=== PATIENT | male | born 1945 | race Caucasian/White ===

== ENCOUNTER 2018-05-16 09:24 | Inpatient (IN) | payer MEDICARE ==
[2018-05-08 10:09] VITALS: BP 143/77
[~2018-05-16] VITALS: Ht 165.1 cm; Wt 72.6 kg
[~2018-05-16 09:24] MED LIST: AMLO10TA8 PO; APIX5TAB PO; ATOR20TA37 PO; BUPIVACAINE/PF-EPI 0.5% 1:200K ONE; CARV-39 PO; CLON0.2T PO; CLON1PAT8 TP; DEXL60CA2 PO; DOXA2TAB9 PO; FURO20TA3 PO; GLIP10TA24 PO; GLIP5TAB10 PO; LOSA100T14 PO; METF500T17 PO; NEBI5TAB3 PO; OMEG500C3 PO; PANT40TA5 PO; POTA10TA5 PO; POTA20TA6 PO; ROSU10TA PO; SUCR1TAB33 PO; VENL150T PO; VENL75TA PO
[2018-05-16] MEDS ORDERED: LACTATED RINGERS 1,000 ML IV SCH (10:53)
[2018-05-16] MEDS ORDERED: MIDAZOLAM 1 MG/ML, 2ML ONE (11:40)
[2018-05-16] MEDS ORDERED: FENTANYL PF 250 MCG/5ML ONE ×2 (11:40→13:33)
[2018-05-16] MEDS ORDERED: PROPOFOL 10 MG/ML, 20ML ONE (11:42)
[2018-05-16] MEDS ORDERED: NEOSTIGMINE 1 MG/ML, 10ML ONE (11:42)
[2018-05-16] MEDS ORDERED: ONDANSETRON 2MG/ML, 2ML ONE (11:42)
[2018-05-16] MEDS ORDERED: DEXAMETHASONE 4 MG/ML, 1ML ONE (11:42)
[2018-05-16] MEDS ORDERED: CEFAZOLIN 1,000 MG ONE (11:42)
[2018-05-16] MEDS ORDERED: PHENYLEPHRINE 10 MG/ML ONE (12:19)
[2018-05-16] MEDS ORDERED: GLYCOPYRROLATE 0.2MG/1ML, 5ML ONE (12:19)
[2018-05-16] MEDS ORDERED: PROMETHAZINE 25 MG SUPP PR PRN (12:30)
[2018-05-16] MEDS ORDERED: MORPHINE SULFATE 4 MG/ML, 1ML IVPush PRN (12:30)
[2018-05-16] MEDS ORDERED: MEPERIDINE/PF 25MG/0.5ML IVPush PRN (12:30)
[2018-05-16] MEDS ORDERED: OXYcodone 5 MG/5 ML ORAL.SOL UDC PO PRN (12:30)
[2018-05-16] MEDS ORDERED: PROMETHAZINE 25 MG/ML, 1ML IV PRN (12:30)
[2018-05-16] MEDS ORDERED: PROMETHAZINE 25 MG/ML, 1ML IM PRN ×2 (12:30)
[2018-05-16] MEDS ORDERED: ONDANSETRON ODT 8 MG PO PRN (12:30)
[2018-05-16] MEDS ORDERED: hydrALAzine 20 MG/ML, 1ML IV PRN (12:30)
[2018-05-16] MEDS ORDERED: ONDANSETRON 2MG/ML, 2ML IV PRN (12:30)
[2018-05-16] MEDS ORDERED: LABETALOL 5MG/ML, 20ML IV PRN (12:30)
[2018-05-16] MEDS ORDERED: PROMETHAZINE 12.5 MG SUPP PR PRN (12:30)
[2018-05-16] MEDS ORDERED: ROCURONIUM 10MG/ML,5ML ONE (13:07)
[2018-05-16] MEDS ORDERED: HYDROmorphone 2 MG/ML, 1ML ONE (16:42)
[2018-05-16] MEDS ORDERED: FENTANYL PF 100 MCG/2ML ONE (16:42)
[2018-05-16] MEDS: HYDROmorphone 1 MG/ML, 1ML IV PRN ×4 (16:48→17:30)
[2018-05-16] MEDS: FENTANYL PF 100 MCG/2ML IV PRN ×3 (16:57→17:30)
[2018-05-16] MEDS ORDERED: MORPHINE SULFATE 4 MG/ML, 1ML ONE (17:32)
[2018-05-16] MEDS: LACTATED RINGERS 1,000 ML IV SCH (18:47)
[2018-05-16] MEDS ORDERED: CEFAZOLIN PMX 2GM/50ML 50 ML IVPB SCH (19:30)
[2018-05-16] MEDS: FENTANYL PF 100 MCG/2ML IVPush PRN (21:50)
[2018-05-17] MEDS: FENTANYL PF 100 MCG/2ML IVPush PRN ×8 (00:24→20:58)
[2018-05-17] MEDS: LORazepam 2 MG/ML, 1ML IVPush PRN (01:03)
[2018-05-17] MEDS ORDERED: KETOROLAC 30 MG/1 ML IVPush PRN (02:30)
[2018-05-17] MEDS: CEFAZOLIN 2,000 MG in SODIUM CHLORIDE 0.9% 50 ML IVPB SCH ×3 (02:49→19:41)
[2018-05-17] MEDS: LACTATED RINGERS 1,000 ML IV SCH ×3 (03:09→11:18)
[2018-05-17 04:57] LABS: BASOPHILS # (AUTO) 0.02 x10^3/uL (0-0.1); BASOPHILS % (AUTO) 0 % (0-1); EOSINOPHILS % (AUTO) 0 % (1-7); LYMPHOCYTES # (AUTO) 0.56 x10^3/uL (1-3.4); LYMPHOCYTES % (AUTO) 4 % (22-44); MD NO; MEAN CORPUSCULAR HEMOGLOBIN 31.6 pg (27.5-34.5); MEAN CORPUSCULAR HGB CONC 34.1 g/dL (33.2-36.2); MEAN CORPUSCULAR VOLUME 92.8 fL (81-97); MONOCYTES # (AUTO) 0.91 x10^3/uL (0.2-0.8); MONOCYTES % (AUTO) 6 % (2-9); NEUTROPHILS # (AUTO) 12.96 x10^3/uL (1.8-6.8); NEUTROPHILS % (AUTO) 90 % (42-75); PLATELET COUNT 220 x10^3/uL (130-400); RED BLOOD COUNT 3.95 x10^6/uL (4.38-5.82); RED CELL DISTRIBUTION WIDTH 13.2 % (9.4-14.8)
[2018-05-17 05:06] VITALS: BP 145/71
[2018-05-17 05:07] LABS: ANION GAP 10 mmol/L (5-15); CALCIUM 8.2 mg/dL (8.5-10.1); CHLORIDE 106 mmol/L (98-107); CREATININE 1.19 mg/dL (0.7-1.3)
[2018-05-17 05:14] LABS: PREALBUMIN 29.7 mg/dL (20.0-40.0)
[2018-05-17] MEDS ORDERED: MAGNESIUM SULFATE 3 GM in SODIUM CHLORIDE 0.9% 100 ML IV ONE (08:30)
[2018-05-17] MEDS: PANTOPRAZOLE 40 MG IV IVPush SCH (09:11)
[2018-05-17] MEDS: ENOXAPARIN 40 MG/0.4 ML SQ SCH (09:11)
[2018-05-17] MEDS: ONDANSETRON 2MG/ML, 2ML IVPush PRN ×2 (11:17→17:32)
[2018-05-17] MEDS ORDERED: PANTOPRAZOLE 40 MG IV IVPush ONE (20:00)
[2018-05-17] MEDS ORDERED: METOCLOPRAMIDE 5 MG/ML, 2ML IVPush ONE (20:00)
[2018-05-17] MEDS ORDERED: METOCLOPRAMIDE 5 MG/ML, 2ML ONE (20:03)
[2018-05-17] MEDS ORDERED: FUROSEMIDE 20 MG/2 ML ONE (23:51)
[2018-05-18] MEDS ORDERED: FUROSEMIDE 20 MG/2 ML IV ONE
[2018-05-18] MEDS ORDERED: FUROSEMIDE 20 MG/2 ML IV PRN (01:00)
[2018-05-18] MEDS: FENTANYL PF 100 MCG/2ML IVPush PRN ×7 (01:05→18:42)
[2018-05-18] MEDS ORDERED: LACTATED RINGERS 1,000 ML IV SCH (02:00)
[2018-05-18] MEDS: CEFAZOLIN 2,000 MG in SODIUM CHLORIDE 0.9% 50 ML IV SCH ×3 (03:39→19:18)
[2018-05-18 04:03] VITALS: BP 130/70
[2018-05-18 06:27] LABS: BASOPHILS # (AUTO) 0.05 x10^3/uL (0-0.1); BASOPHILS % (AUTO) 0 % (0-1); EOSINOPHILS % (AUTO) 0 % (1-7); LYMPHOCYTES % (AUTO) 6 % (22-44); MD NO; MEAN CORPUSCULAR HEMOGLOBIN 32.2 pg (27.5-34.5); MEAN CORPUSCULAR HGB CONC 34.7 g/dL (33.2-36.2); MEAN CORPUSCULAR VOLUME 92.8 fL (81-97); MONOCYTES # (AUTO) 1.12 x10^3/uL (0.2-0.8); MONOCYTES % (AUTO) 10 % (2-9); NEUTROPHILS # (AUTO) 9.43 x10^3/uL (1.8-6.8); NEUTROPHILS % (AUTO) 84 % (42-75); PLATELET COUNT 189 x10^3/uL (130-400); RED BLOOD COUNT 3.01 x10^6/uL (4.38-5.82); RED CELL DISTRIBUTION WIDTH 13.7 % (9.4-14.8)
[2018-05-18 06:36] LABS: ANION GAP 9 mmol/L (5-15); CALCIUM 8.1 mg/dL (8.5-10.1); CHLORIDE 106 mmol/L (98-107)
[2018-05-18 06:38] LABS: CREATININE 1.39 mg/dL (0.7-1.3)
[2018-05-18] MEDS: DEXTROSE 5% IV PRN ×2 (09:12→17:36)
[2018-05-18] MEDS: PANTOPRAZOLE 40 MG IV IVPush SCH (09:12)
[2018-05-18] MEDS: ENOXAPARIN 40 MG/0.4 ML SQ SCH (09:12)
[2018-05-18] MEDS: METHOCARBAMOL IV PRN ×2 (09:12→17:36)
[2018-05-18] MEDS: D5%-0.45% NACL 1,000 ML IV SCH ×2 (14:12→23:44)
[2018-05-18] MEDS: hydrALAzine 20 MG/ML, 1ML IVPush PRN (23:50)
[2018-05-19] MEDS: FENTANYL PF 100 MCG/2ML IVPush PRN ×4 (00:28→12:42)
[2018-05-19] MEDS ORDERED: METOPROLOL 1 MG/ML, 5ML ONE (02:37)
[2018-05-19] MEDS: METOPROLOL 1 MG/ML, 5ML IVPush PRN ×3 (02:40→19:51)
[2018-05-19] MEDS: CEFAZOLIN 2,000 MG in SODIUM CHLORIDE 0.9% 50 ML IV SCH ×3 (03:43→19:51)
[2018-05-19 04:09] VITALS: BP 110/48
[2018-05-19 04:29] LABS: BASOPHILS # (AUTO) 0.01 x10^3/uL (0-0.1); BASOPHILS % (AUTO) 0 % (0-1); EOSINOPHILS # (AUTO) 0.01 x10^3/uL (0-0.4); EOSINOPHILS % (AUTO) 0 % (1-7); LYMPHOCYTES # (AUTO) 1.09 x10^3/uL (1-3.4); LYMPHOCYTES % (AUTO) 11 % (22-44); MD NO; MEAN CORPUSCULAR HEMOGLOBIN 31.6 pg (27.5-34.5); MEAN CORPUSCULAR HGB CONC 33.8 g/dL (33.2-36.2); MEAN CORPUSCULAR VOLUME 93.6 fL (81-97); MEAN PLATELET VOLUME 8.5 fL (7.4-10.4); MONOCYTES # (AUTO) 0.85 x10^3/uL (0.2-0.8); MONOCYTES % (AUTO) 8 % (2-9); NEUTROPHILS # (AUTO) 8.27 x10^3/uL (1.8-6.8); NEUTROPHILS % (AUTO) 81 % (42-75); PLATELET COUNT 192 x10^3/uL (130-400); RED BLOOD COUNT 2.89 x10^6/uL (4.38-5.82); RED CELL DISTRIBUTION WIDTH 13.7 % (9.4-14.8)
[2018-05-19 04:42] LABS: ANION GAP 6 mmol/L (5-15); CALCIUM 7.7 mg/dL (8.5-10.1); CHLORIDE 105 mmol/L (98-107); CREATININE 1.13 mg/dL (0.7-1.3)
[2018-05-19] MEDS: ENOXAPARIN 40 MG/0.4 ML SQ SCH (08:39)
[2018-05-19] MEDS: PANTOPRAZOLE 40 MG IV IVPush SCH (08:39)
[2018-05-19] MEDS: POTASSIUM CHLORIDE 10% 40 MEQ/30 ML UDC JT SCH ×2 (08:40→19:51)
[2018-05-19] MEDS: DEXTROSE 5% IV PRN (10:57)
[2018-05-19] MEDS: METHOCARBAMOL IV PRN (10:57)
[2018-05-20] MEDS: FENTANYL PF 100 MCG/2ML IVPush PRN (00:45)
[2018-05-20] MEDS: D5%-0.45% NACL 1,000 ML IV SCH (01:55)
[2018-05-20] MEDS: CEFAZOLIN PMX 2GM/50ML 50 ML IVPB SCH ×3 (03:25→20:14)
[2018-05-20 04:00] VITALS: BP 146/62
[2018-05-20] MEDS: METOPROLOL 1 MG/ML, 5ML IVPush PRN ×2 (06:43→13:21)
[2018-05-20] MEDS: PANTOPRAZOLE 40 MG IV IVPush SCH (08:05)
[2018-05-20] MEDS: ENOXAPARIN 40 MG/0.4 ML SQ SCH (08:05)
[2018-05-20] MEDS ORDERED: GUAIFENESIN ER 600 MG TABLET PO SCH (09:00)
[2018-05-20 09:12] LABS: ANION GAP 7 mmol/L (5-15); CALCIUM 7.6 mg/dL (8.5-10.1); CHLORIDE 108 mmol/L (98-107)
[2018-05-20] MEDS ORDERED: MAGNESIUM SULFATE 1 GM in SODIUM CHLORIDE 0.9% 50 ML IV ONE (09:30)
[2018-05-20] MEDS ORDERED: POTASSIUM CHLORIDE 10% 40 MEQ/30 ML UDC PO ONE (09:30)
[2018-05-20] MEDS: DEXTROSE 5% IV PRN (11:04)
[2018-05-20] MEDS: METHOCARBAMOL IV PRN (11:04)
[2018-05-20] MEDS: INSULIN LISPRO 100 UNITS/ML, PEN SQ-INSULIN SCH ×3 (11:19→20:30)
[2018-05-20] MEDS ORDERED: GUAIFENESIN 100 MG/5 ML, 10ML UDC PO PRN (13:00)
[2018-05-20 15:00] VITALS: BP 150/76
[2018-05-20] MEDS: CARVEDILOL 12.5 MG TABLET PO SCH (18:00)
[2018-05-20] MEDS ORDERED: HYDROcodone/APAP 5/325 TABLET ONE (18:47)
[2018-05-20] MEDS: HYDROcodone/APAP 5/325 TABLET PO PRN (19:00)
[2018-05-20 19:54] VITALS: BP 145/74
[2018-05-20] MEDS: AMLODIPINE 5 MG TABLET PO SCH (20:30)
[2018-05-20] MEDS: ATORVASTATIN 20 MG TABLET PO SCH (20:30)
[2018-05-20] MEDS: VENLAFAXINE 75 MG CAP ER PO SCH (20:30)
[2018-05-20] MEDS ORDERED: VENLAFAXINE 75 MG CAP ER ONE (20:33)
[2018-05-20] MEDS: DIPHENHYDRAMINE 50 MG/ML, 1ML IVPush PRN (22:42)
[2018-05-21] VITALS: BP 149/84
[2018-05-21] MEDS: DIPHENHYDRAMINE 50 MG/ML, 1ML IVPush PRN (00:49)
[2018-05-21] MEDS: HYDROcodone/APAP 5/325 TABLET PO PRN ×3 (00:50→20:09)
[2018-05-21] MEDS: CEFAZOLIN PMX 2GM/50ML 50 ML IVPB SCH ×2 (03:11→12:11)
[2018-05-21 04:00] VITALS: BP 152/76
[2018-05-21 05:59] LABS: ANION GAP 8 mmol/L (5-15); CALCIUM 7.9 mg/dL (8.5-10.1); CHLORIDE 107 mmol/L (98-107); MEAN CORPUSCULAR HGB CONC 35.1 g/dL (33.2-36.2); MEAN CORPUSCULAR VOLUME 94.2 fL (81-97); MEAN PLATELET VOLUME 8.5 fL (7.4-10.4); PLATELET COUNT 223 x10^3/uL (130-400); RED BLOOD COUNT 2.27 x10^6/uL (4.38-5.82); RED CELL DISTRIBUTION WIDTH 13.5 % (9.4-14.8)
[2018-05-21] MEDS: CARVEDILOL 12.5 MG TABLET PO SCH ×2 (06:10→18:49)
[2018-05-21 06:34] LABS: BASOPHILS # (AUTO) 0.04 x10^3/uL (0-0.1); BASOPHILS % (AUTO) 0 % (0-1); EOSINOPHILS # (AUTO) 0.19 x10^3/uL (0-0.4); EOSINOPHILS % (AUTO) 2 % (1-7); LYMPHOCYTES # (AUTO) 1.53 x10^3/uL (1-3.4); LYMPHOCYTES % (AUTO) 15 % (22-44); MD SCAN; MONOCYTES # (AUTO) 1.22 x10^3/uL (0.2-0.8); MONOCYTES % (AUTO) 12 % (2-9); NEUTROPHILS # (AUTO) 7.42 x10^3/uL (1.8-6.8); NEUTROPHILS % (AUTO) 71 % (42-75)
[2018-05-21 06:44] VITALS: BP 134/76
[2018-05-21] MEDS: INSULIN LISPRO 100 UNITS/ML, PEN SQ-INSULIN SCH ×4 (07:00→20:48)
[2018-05-21] MEDS: PANTOPRAZOLE 40 MG IV IVPush SCH (08:51)
[2018-05-21] MEDS: AMLODIPINE 5 MG TABLET PO SCH ×2 (08:51→20:10)
[2018-05-21] MEDS: POTASSIUM CHLORIDE 10 MEQ TABLET.ER PO SCH (08:51)
[2018-05-21] MEDS: VENLAFAXINE 75 MG CAP ER PO SCH (08:51)
[2018-05-21] MEDS: FUROSEMIDE 20 MG TABLET PO SCH (08:51)
[2018-05-21] MEDS: DOXAZOSIN 2MG TABLET PO SCH (08:52)
[2018-05-21] MEDS: ENOXAPARIN 40 MG/0.4 ML SQ SCH (08:52)
[2018-05-21] MEDS ORDERED: DEXILANT 60 MG HOMEMEDPO SCH (09:00)
[2018-05-21 12:50] VITALS: BP 125/72
[2018-05-21 17:25] VITALS: BP 122/66
[2018-05-21 19:50] VITALS: BP 122/66
[2018-05-21] MEDS: ATORVASTATIN 20 MG TABLET PO SCH (20:10)
[2018-05-22] VITALS (9 sets, daily range): BP systolic 96–141; BP diastolic 56–74
[2018-05-22 05:24] LABS: BASOPHILS # (AUTO) 0.03 x10^3/uL (0-0.1); BASOPHILS % (AUTO) 0 % (0-1); EOSINOPHILS # (AUTO) 0.37 x10^3/uL (0-0.4); EOSINOPHILS % (AUTO) 4 % (1-7); LYMPHOCYTES # (AUTO) 1.47 x10^3/uL (1-3.4); LYMPHOCYTES % (AUTO) 15 % (22-44); MD NO; MEAN CORPUSCULAR HEMOGLOBIN 32.2 pg (27.5-34.5); MEAN CORPUSCULAR HGB CONC 34.4 g/dL (33.2-36.2); MEAN CORPUSCULAR VOLUME 93.5 fL (81-97); MEAN PLATELET VOLUME 8.1 fL (7.4-10.4); MONOCYTES # (AUTO) 1.18 x10^3/uL (0.2-0.8); MONOCYTES % (AUTO) 12 % (2-9); NEUTROPHILS % (AUTO) 70 % (42-75); PLATELET COUNT 240 x10^3/uL (130-400); RED CELL DISTRIBUTION WIDTH 13.4 % (9.4-14.8)
[2018-05-22] MEDS: HYDROcodone/APAP 5/325 TABLET PO PRN ×2 (06:30→20:22)
[2018-05-22] MEDS: CARVEDILOL 12.5 MG TABLET PO SCH ×2 (06:30→18:51)
[2018-05-22] MEDS: INSULIN LISPRO 100 UNITS/ML, PEN SQ-INSULIN SCH ×4 (07:00→20:25)
[2018-05-22] MEDS: ENOXAPARIN 40 MG/0.4 ML SQ SCH (09:00)
[2018-05-22] MEDS: AMLODIPINE 5 MG TABLET PO SCH ×2 (12:13→20:22)
[2018-05-22] MEDS: metFORMIN 500 MG TABLET PO SCH ×2 (12:13→17:16)
[2018-05-22] MEDS: DOXAZOSIN 2MG TABLET PO SCH (12:13)
[2018-05-22] MEDS: FUROSEMIDE 20 MG TABLET PO SCH (12:14)
[2018-05-22] MEDS: PANTOPRAZOLE 40 MG IV IVPush SCH (12:14)
[2018-05-22] MEDS: VENLAFAXINE 75 MG CAP ER PO SCH (12:14)
[2018-05-22] MEDS: POTASSIUM CHLORIDE 10 MEQ TABLET.ER PO SCH (17:16)
[2018-05-22] MEDS: ATORVASTATIN 20 MG TABLET PO SCH (20:22)
[2018-05-23 03:32] VITALS: BP 144/69
[2018-05-23] MEDS: CARVEDILOL 12.5 MG TABLET PO SCH ×2 (05:36→17:15)
[2018-05-23] MEDS: HYDROcodone/APAP 5/325 TABLET PO PRN ×4 (05:36→18:39)
[2018-05-23 05:38] LABS: BASOPHILS # (AUTO) 0.02 x10^3/uL (0-0.1); BASOPHILS % (AUTO) 0 % (0-1); EOSINOPHILS # (AUTO) 0.28 x10^3/uL (0-0.4); EOSINOPHILS % (AUTO) 3 % (1-7); LYMPHOCYTES # (AUTO) 1.25 x10^3/uL (1-3.4); LYMPHOCYTES % (AUTO) 11 % (22-44); MD NO; MEAN CORPUSCULAR HEMOGLOBIN 32.8 pg (27.5-34.5); MEAN CORPUSCULAR HGB CONC 34.9 g/dL (33.2-36.2); MEAN CORPUSCULAR VOLUME 93.8 fL (81-97); MEAN PLATELET VOLUME 8.6 fL (7.4-10.4); MONOCYTES # (AUTO) 1.44 x10^3/uL (0.2-0.8); MONOCYTES % (AUTO) 13 % (2-9); NEUTROPHILS # (AUTO) 7.97 x10^3/uL (1.8-6.8); NEUTROPHILS % (AUTO) 73 % (42-75); PLATELET COUNT 272 x10^3/uL (130-400); RED CELL DISTRIBUTION WIDTH 13.9 % (9.4-14.8)
[2018-05-23 05:48] LABS: ANION GAP 7 mmol/L (5-15); CALCIUM 7.6 mg/dL (8.5-10.1); CHLORIDE 101 mmol/L (98-107)
[2018-05-23 05:51] LABS: CREATININE 0.88 mg/dL (0.7-1.3)
[2018-05-23 07:46] VITALS: BP 131/63
[2018-05-23] MEDS: VENLAFAXINE 75 MG CAP ER PO SCH (07:47)
[2018-05-23] MEDS: FUROSEMIDE 20 MG TABLET PO SCH (07:48)
[2018-05-23] MEDS: metFORMIN 500 MG TABLET PO SCH ×2 (07:48→17:15)
[2018-05-23] MEDS: POTASSIUM CHLORIDE 10 MEQ TABLET.ER PO SCH (07:48)
[2018-05-23] MEDS: DOXAZOSIN 2MG TABLET PO SCH (07:48)
[2018-05-23] MEDS: AMLODIPINE 5 MG TABLET PO SCH ×2 (07:49→21:00)
[2018-05-23] MEDS: PANTOPRAZOLE 40 MG IV IVPush SCH (07:49)
[2018-05-23] MEDS: INSULIN LISPRO 100 UNITS/ML, PEN SQ-INSULIN SCH ×4 (07:50→22:46)
[2018-05-23] MEDS ORDERED: METHOCARBAMOL 500 MG TABLET ONE (09:43)
[2018-05-23] MEDS: METHOCARBAMOL 500 MG TABLET PO PRN ×2 (09:54→18:39)
[2018-05-23] MEDS: ENOXAPARIN 40 MG/0.4 ML SQ SCH (09:54)
[2018-05-23 13:15] VITALS: BP 118/62
[2018-05-23] MEDS ORDERED: FUROSEMIDE 20 MG/2 ML IV ONE (18:30)
[2018-05-23 19:05] VITALS: BP 121/70
[2018-05-23] MEDS ORDERED: FUROSEMIDE 40 MG/4 ML IV ONE (21:30)
[2018-05-23 21:49] LABS: MEAN CORPUSCULAR HEMOGLOBIN 32.4 pg (27.5-34.5); MEAN CORPUSCULAR HGB CONC 34.2 g/dL (33.2-36.2); MEAN CORPUSCULAR VOLUME 94.5 fL (81-97); MEAN PLATELET VOLUME 8.2 fL (7.4-10.4); PLATELET COUNT 329 x10^3/uL (130-400); RED BLOOD COUNT 2.72 x10^6/uL (4.38-5.82); RED CELL DISTRIBUTION WIDTH 13.9 % (9.4-14.8)
[2018-05-23 21:55] LABS: ALBUMIN 2.2 g/dL (3.4-5.0); ANION GAP 10 mmol/L (5-15); CALCIUM 7.5 mg/dL (8.5-10.1); CHLORIDE 100 mmol/L (98-107)
[2018-05-23 22:00] LABS: ALANINE AMINOTRANSFERASE 13 U/L (12-78); ALKALINE PHOSPHATASE 59 U/L (45-117); BILIRUBIN,TOTAL 1.1 mg/dL (0.2-1.0); CREATININE 1.34 mg/dL (0.7-1.3); TOTAL PROTEIN 5.2 g/dL (6.4-8.2); TROPONIN I < 0.015 ng/mL (0.000-0.045)
[2018-05-23 22:26] LABS: MD YES
[2018-05-23 22:30] LABS: BAND#(MANUAL) 2.47 x10^3/uL; BANDS%(MANUAL) 17 % (0-7); BASOS#(MANUAL) 0.15 x10^3/uL (0-0.1); BASOS% (MANUAL) 1 % (0-1); LYMPH#(MANUAL) 0.73 x10^3/uL (1-3.4); LYMPHS% (MANUAL) 5 % (22-44); MONOS#(MANUAL) 1.45 x10^3/uL (0.3-2.7); MONOS% (MANUAL) 10 % (2-9); SEG#(MANUAL) 9.72 x10^3/uL (1.8-6.8); SEGS% (MANUAL) 67 % (42-75)
[2018-05-23 22:32] LABS: POLYCHROMASIA 1+
[2018-05-23 22:34] LABS: <PLATELET ESTIMATE> ADEQUATE; LARGE PLATELETS 1+; OVALOCYTES 1+
[2018-05-23] MEDS: ATORVASTATIN 20 MG TABLET PO SCH (22:54)
[2018-05-23] MEDS: FENTANYL PF 100 MCG/2ML IVPush PRN (22:56)
[2018-05-23] MEDS ORDERED: PHARMACOKINETIC CONSULTATION MC ONE (23:30)
[2018-05-23] MEDS ORDERED: VANCOMYCIN 1,700 MG in SODIUM CHLORIDE 0.9% 250 ML IV SCH (23:30)
[2018-05-23] MEDS ORDERED: VANCOMYCIN PER PHARMACY MC PRN (23:30)
[2018-05-23] MEDS ORDERED: PHARMACOKINETIC MONITORING MC PRN (23:30)
[2018-05-23] MEDS ORDERED: NOREPINEPHRINE 4 MG in SODIUM CHLORIDE 0.9% 246 ML IV PRN (23:30)
[2018-05-23] MEDS ORDERED: ALBUMIN HUMAN 25% 100 ML IV ONE (23:30)
[2018-05-23] MEDS ORDERED: PIPERACILLIN/TAZO/PMX 3.375GM 50 ML IV SCH (23:30)
[2018-05-24] MEDS: ERTAPENEM 1 GM in SODIUM CHLORIDE 0.9% 50 ML IV SCH (00:50)
[2018-05-24 04:33] LABS: BASOPHILS # (AUTO) 0.03 x10^3/uL (0-0.1); BASOPHILS % (AUTO) 0 % (0-1); EOSINOPHILS % (AUTO) 0 % (1-7); LYMPHOCYTES # (AUTO) 0.55 x10^3/uL (1-3.4); LYMPHOCYTES % (AUTO) 5 % (22-44); MD NO; MEAN CORPUSCULAR HEMOGLOBIN 31.9 pg (27.5-34.5); MEAN CORPUSCULAR HGB CONC 33.9 g/dL (33.2-36.2); MEAN CORPUSCULAR VOLUME 94.3 fL (81-97); MEAN PLATELET VOLUME 8.6 fL (7.4-10.4); MONOCYTES # (AUTO) 1.06 x10^3/uL (0.2-0.8); MONOCYTES % (AUTO) 9 % (2-9); NEUTROPHILS # (AUTO) 10.36 x10^3/uL (1.8-6.8); NEUTROPHILS % (AUTO) 86 % (42-75); PLATELET COUNT 368 x10^3/uL (130-400); RED BLOOD COUNT 2.64 x10^6/uL (4.38-5.82); RED CELL DISTRIBUTION WIDTH 13.8 % (9.4-14.8)
[2018-05-24 04:39] LABS: ALANINE AMINOTRANSFERASE 14 U/L (12-78); ALBUMIN 2.6 g/dL (3.4-5.0); ANION GAP 7 mmol/L (5-15); CALCIUM 7.9 mg/dL (8.5-10.1); CHLORIDE 98 mmol/L (98-107); CREATININE 1.25 mg/dL (0.7-1.3)
[2018-05-24 04:41] LABS: ALKALINE PHOSPHATASE 57 U/L (45-117); BILIRUBIN,TOTAL 1.1 mg/dL (0.2-1.0); TOTAL PROTEIN 5.4 g/dL (6.4-8.2)
[2018-05-24] MEDS: FENTANYL PF 100 MCG/2ML IVPush PRN (04:46)
[2018-05-24] MEDS: CARVEDILOL 12.5 MG TABLET PO SCH ×2 (06:37→17:47)
[2018-05-24] MEDS: AMLODIPINE 5 MG TABLET PO SCH ×2 (09:00→20:55)
[2018-05-24] MEDS: DOXAZOSIN 2MG TABLET PO SCH (09:00)
[2018-05-24] MEDS: ENOXAPARIN 40 MG/0.4 ML SQ SCH (09:36)
[2018-05-24] MEDS: PANTOPRAZOLE 40 MG IV IVPush SCH (09:36)
[2018-05-24] MEDS: FUROSEMIDE 40 MG/4 ML IV SCH ×3 (09:36→21:42)
[2018-05-24] MEDS: POTASSIUM CHLORIDE 10 MEQ TABLET.ER PO SCH (09:37)
[2018-05-24] MEDS: metFORMIN 500 MG TABLET PO SCH ×2 (09:41→17:47)
[2018-05-24] MEDS: VENLAFAXINE 75 MG CAP ER PO SCH (09:41)
[2018-05-24] MEDS: INSULIN LISPRO 100 UNITS/ML, PEN SQ-INSULIN SCH ×4 (09:52→23:02)
[2018-05-24] MEDS: LORazepam 2 MG/ML, 1ML IVPush PRN ×2 (11:44→21:49)
[2018-05-24] MEDS ORDERED: methylPREDNISolone SOD SUCC 125 MG/2 ML IVPush STA (13:03)
[2018-05-24] MEDS ORDERED: ALBUTEROL/IPRATROPIUM 2.5MG/0.5MG, 3 ML ONE (13:03)
[2018-05-24] MEDS: ALBUTEROL/IPRATROPIUM 2.5MG/0.5MG, 3 ML HHN SCH ×3 (13:30→22:41)
[2018-05-24] MEDS: ATORVASTATIN 20 MG TABLET PO SCH (20:55)
[2018-05-24] MEDS ORDERED: MORPHINE SULFATE 4 MG/ML, 1ML IVPush PRN (22:30)
[2018-05-25] MEDS: ERTAPENEM 1 GM in SODIUM CHLORIDE 0.9% 50 ML IV SCH ×2 (00:01→23:42)
[2018-05-25] MEDS: FENTANYL PF 100 MCG/2ML IVPush PRN ×2 (01:01→15:30)
[2018-05-25] MEDS: VANCOMYCIN 1,700 MG in SODIUM CHLORIDE 0.9% 250 ML IV SCH (01:25)
[2018-05-25] MEDS ORDERED: ROCURONIUM 10 MG/ML,10ML IVPush ONE (02:30)
[2018-05-25] MEDS ORDERED: MIDAZOLAM 1 MG/ML, 5ML IVPush PRN (02:30)
[2018-05-25] MEDS: ALBUTEROL/IPRATROPIUM 2.5MG/0.5MG, 3 ML HHN SCH (03:00)
[2018-05-25] MEDS ORDERED: PROPOFOL 100 ML IV PRN (03:30)
[2018-05-25] MEDS ORDERED: INSULIN LISPRO 100 UNITS/ML, PEN SQ-INSULIN SCH (04:00)
[2018-05-25] MEDS ORDERED: GLUCAGON 1 MG IM PRN (04:00)
[2018-05-25] MEDS ORDERED: ALBUTEROL/IPRATROPIUM 2.5MG/0.5MG, 3 ML INLINE SCH (04:00)
[2018-05-25] MEDS ORDERED: LACTULOSE 20 GM/30 ML UDC NG PRN (04:00)
[2018-05-25] MEDS ORDERED: PHARMACY MAY ADJ FOR RENAL FX MC SCH (04:00)
[2018-05-25] MEDS ORDERED: BISACODYL 10 MG SUPP PR PRN (04:00)
[2018-05-25] MEDS ORDERED: SODIUM CHLORIDE 0.9% 1,000ML IVBOLUS ONE (04:00)
[2018-05-25] MEDS ORDERED: LIDOCAINE-MPF 1%, 2ML ENDO PRN (04:00)
[2018-05-25] MEDS ORDERED: DEXTROSE 4 GM TAB.CHEW PO PRN (04:00)
[2018-05-25] MEDS ORDERED: SENNA/DOCUSATE TABLET NG PRN (04:00)
[2018-05-25] MEDS ORDERED: DEXTROSE 50%, 50ML SYRINGE IVPush PRN (04:00)
[2018-05-25] MEDS ORDERED: SENNOSIDES 8.8 MG/5 ML ORAL SOL NG PRN (04:00)
[2018-05-25] MEDS ORDERED: FAMOTIDINE 20 MG/2 ML IV SCH (04:00)
[2018-05-25] MEDS: INSULIN LISPRO 100 UNITS/ML, PEN SQ-INSULIN SCH ×4 (05:15→23:29)
[2018-05-25] MEDS: CARVEDILOL 12.5 MG TABLET PO SCH (06:00)
[2018-05-25 06:47] LABS: ANION GAP 10 mmol/L (5-15); CALCIUM 7.6 mg/dL (8.5-10.1); CHLORIDE 102 mmol/L (98-107); CREATININE 1.66 mg/dL (0.7-1.3)
[2018-05-25] MEDS ORDERED: BUPIVACAINE/PF-EPI 0.5% 1:200K ONE (06:50)
[2018-05-25 07:00] LABS: MEAN CORPUSCULAR HEMOGLOBIN 32.3 pg (27.5-34.5); MEAN CORPUSCULAR HGB CONC 33.9 g/dL (33.2-36.2); MEAN CORPUSCULAR VOLUME 95.4 fL (81-97); MEAN PLATELET VOLUME 8.1 fL (7.4-10.4); PLATELET COUNT 386 x10^3/uL (130-400); RED BLOOD COUNT 2.32 x10^6/uL (4.38-5.82)
[2018-05-25] MEDS ORDERED: FENTANYL PF 100 MCG/2ML ONE (07:18)
[2018-05-25] MEDS: ALBUTEROL/IPRATROPIUM 2.5MG/0.5MG, 3 ML INLINE SCH ×5 (07:25→23:00)
[2018-05-25] MEDS ORDERED: ROCURONIUM 10 MG/ML,10ML ONE ×2 (07:27→07:45)
[2018-05-25] MEDS ORDERED: PHENYLEPHRINE 10 MG/ML ONE ×5 (07:27→08:45)
[2018-05-25] MEDS ORDERED: MIDAZOLAM 1 MG/ML, 2ML ONE (07:31)
[2018-05-25] MEDS ORDERED: PROPOFOL 10 MG/ML, 100ML IV ONE (07:45)
[2018-05-25] MEDS ORDERED: MIDAZOLAM 1 MG/ML, 5ML ONE (07:45)
[2018-05-25] MEDS: POTASSIUM CHLORIDE 10 MEQ TABLET.ER PO SCH (08:00)
[2018-05-25] MEDS ORDERED: MIDAZOLAM 1 MG/ML, 2ML IVPush ONE (08:00)
[2018-05-25] MEDS: metFORMIN 500 MG TABLET PO SCH (08:00)
[2018-05-25 08:12] LABS: MD YES
[2018-05-25 08:15] LABS: BAND#(MANUAL) 6.15 x10^3/uL; BANDS%(MANUAL) 34 % (0-7); LYMPH#(MANUAL) 0.72 x10^3/uL (1-3.4); LYMPHS% (MANUAL) 4 % (22-44); MONOS#(MANUAL) 1.09 x10^3/uL (0.3-2.7); MONOS% (MANUAL) 6 % (2-9); SEG#(MANUAL) 10.14 x10^3/uL (1.8-6.8); SEGS% (MANUAL) 56 % (42-75)
[2018-05-25 08:20] LABS: ANISOCYTOSIS 1+; BASOPHILLIC STIPPLING 1+; POLYCHROMASIA 1+
[2018-05-25 08:21] LABS: SPHEROCYTES 1+
[2018-05-25 08:35] LABS: <PLATELET ESTIMATE> ADEQUATE; <PLT MORPHOLOGY> NORMAL PLT MORPH
[2018-05-25] MEDS: SODIUM CHLORIDE FLUSH 10ML SYR IVF SCH ×2 (09:00→21:10)
[2018-05-25] MEDS ORDERED: ROCURONIUM 10MG/ML,5ML ONE (09:51)
[2018-05-25 11:14] LABS: CHLORIDE 106 mmol/L (98-107)
[2018-05-25 11:20] LABS: ALANINE AMINOTRANSFERASE 14 U/L (12-78); ALBUMIN 1.7 g/dL (3.4-5.0); ALKALINE PHOSPHATASE 49 U/L (45-117); ANION GAP 6 mmol/L (5-15); BILIRUBIN,TOTAL 0.8 mg/dL (0.2-1.0); CREATININE 1.35 mg/dL (0.7-1.3); TOTAL PROTEIN 4.5 g/dL (6.4-8.2)
[2018-05-25 11:34] LABS: MEAN CORPUSCULAR HEMOGLOBIN 32.1 pg (27.5-34.5); MEAN CORPUSCULAR HGB CONC 33.8 g/dL (33.2-36.2); MEAN PLATELET VOLUME 8.3 fL (7.4-10.4); PLATELET COUNT 457 x10^3/uL (130-400); RED BLOOD COUNT 2.76 x10^6/uL (4.38-5.82)
[2018-05-25 11:39] LABS: HEMOGRAM NOTE RECHECKED
[2018-05-25] MEDS: SODIUM CHLORIDE 0.9% 1,000 ML IV SCH (12:00)
[2018-05-25 12:11] LABS: MD YES
[2018-05-25 12:13] LABS: ANISOCYTOSIS 1+; BAND#(MANUAL) 6.05 x10^3/uL; BANDS%(MANUAL) 36 % (0-7); LYMPH#(MANUAL) 0.34 x10^3/uL (1-3.4); LYMPHS% (MANUAL) 2 % (22-44); MONOS#(MANUAL) 0.84 x10^3/uL (0.3-2.7); MONOS% (MANUAL) 5 % (2-9); POLYCHROMASIA 1+; SEG#(MANUAL) 9.58 x10^3/uL (1.8-6.8); SEGS% (MANUAL) 57 % (42-75)
[2018-05-25 12:14] LABS: <PLATELET ESTIMATE> INCREASED; <PLT MORPHOLOGY> NORMAL PLT MORPH; SPHEROCYTES 1+
[2018-05-25] MEDS: ENOXAPARIN 40 MG/0.4 ML SQ SCH (12:56)
[2018-05-25] MEDS: PROPOFOL 100 ML IV PRN ×2 (13:29→21:11)
[2018-05-25] MEDS: PANTOPRAZOLE 40 MG IV IVPush SCH (15:18)
[2018-05-25] MEDS ORDERED: PHENYLEPHRINE 10 MG in SODIUM CHLORIDE 0.9% 249 ML IV PRN (16:30)
[2018-05-25 21:17] LABS: ANION GAP 9 mmol/L (5-15); CALCIUM 7.1 mg/dL (8.5-10.1); CHLORIDE 105 mmol/L (98-107); CREATININE 1.82 mg/dL (0.7-1.3)
[2018-05-25] MEDS: ACETAMINOPHEN 325 MG TABLET PO PRN (21:51)
[2018-05-26] MEDS: VANCOMYCIN 1,700 MG in SODIUM CHLORIDE 0.9% 250 ML IV SCH (01:34)
[2018-05-26] MEDS: PROPOFOL 100 ML IV PRN ×3 (02:52→19:24)
[2018-05-26] MEDS ORDERED: ALBUMIN HUMAN 25% 100 ML ONE (02:59)
[2018-05-26] MEDS: ALBUTEROL/IPRATROPIUM 2.5MG/0.5MG, 3 ML INLINE SCH ×6 (03:00→22:45)
[2018-05-26] MEDS ORDERED: ALBUMIN HUMAN 25% 100 ML IV ONE (03:00)
[2018-05-26] MEDS: INSULIN LISPRO 100 UNITS/ML, PEN SQ-INSULIN SCH ×4 (05:08→23:20)
[2018-05-26 05:23] LABS: MEAN CORPUSCULAR HEMOGLOBIN 32.2 pg (27.5-34.5); MEAN CORPUSCULAR HGB CONC 34.1 g/dL (33.2-36.2); MEAN CORPUSCULAR VOLUME 94.4 fL (81-97); MEAN PLATELET VOLUME 8.1 fL (7.4-10.4); PLATELET COUNT 314 x10^3/uL (130-400); RED BLOOD COUNT 1.96 x10^6/uL (4.38-5.82)
[2018-05-26 06:07] LABS: MD YES
[2018-05-26 06:08] LABS: BAND#(MANUAL) 0.61 x10^3/uL; BANDS%(MANUAL) 5 % (0-7); LYMPH#(MANUAL) 0.61 x10^3/uL (1-3.4); LYMPHS% (MANUAL) 5 % (22-44); MONOS#(MANUAL) 0.49 x10^3/uL (0.3-2.7); MONOS% (MANUAL) 4 % (2-9); SEG#(MANUAL) 10.49 x10^3/uL (1.8-6.8); SEGS% (MANUAL) 86 % (42-75)
[2018-05-26 06:09] LABS: ANISOCYTOSIS 1+; POLYCHROMASIA 1+
[2018-05-26 06:10] LABS: <PLATELET ESTIMATE> ADEQUATE
[2018-05-26 06:11] LABS: <PLT MORPHOLOGY> NORMAL PLT MORPH
[2018-05-26 06:28] VITALS: BP 119/55
[2018-05-26 06:34] LABS: ALANINE AMINOTRANSFERASE 20 U/L (12-78); ALBUMIN 1.9 g/dL (3.4-5.0); ANION GAP 10 mmol/L (5-15); CHLORIDE 103 mmol/L (98-107); CREATININE 2.05 mg/dL (0.7-1.3)
[2018-05-26 06:38] LABS: ALKALINE PHOSPHATASE 57 U/L (45-117); BILIRUBIN,TOTAL 0.6 mg/dL (0.2-1.0); TOTAL PROTEIN 4.8 g/dL (6.4-8.2); VANCOMYCIN,RANDOM 41.7 mcg/mL
[2018-05-26 06:40] VITALS: BP 120/56
[2018-05-26] MEDS: POTASSIUM CHLORIDE 10 MEQ TABLET.ER PO SCH (07:40)
[2018-05-26 08:30] VITALS: BP 138/61
[2018-05-26] MEDS: PANTOPRAZOLE 40 MG IV IVPush SCH (09:05)
[2018-05-26] MEDS: METHOCARBAMOL 500 MG TABLET PO PRN (09:05)
[2018-05-26] MEDS: SODIUM CHLORIDE FLUSH 10ML SYR IVF SCH ×2 (09:05→21:25)
[2018-05-26] MEDS: SODIUM CHLORIDE 0.9% 1,000 ML IV SCH (09:05)
[2018-05-26] MEDS: ENOXAPARIN 40 MG/0.4 ML SQ SCH (09:05)
[2018-05-26] MEDS: CARVEDILOL 12.5 MG TABLET PO SCH ×2 (09:06→18:32)
[2018-05-26 09:55] LABS: ANION GAP 10 mmol/L (5-15); CALCIUM 6.7 mg/dL (8.5-10.1); CHLORIDE 106 mmol/L (98-107); CREATININE 1.83 mg/dL (0.7-1.3)
[2018-05-26] MEDS: FLUCONAZOLE 200 MG/100 ML 100 ML IV SCH (14:55)
[2018-05-26] MEDS: LINEZOLID PMX 600MG/300ML 300 ML IV SCH (16:40)
[2018-05-26 23:08] LABS: ANION GAP 10 mmol/L (5-15); CHLORIDE 105 mmol/L (98-107); CREATININE 1.64 mg/dL (0.7-1.3)
[2018-05-26] MEDS: ERTAPENEM 1 GM in SODIUM CHLORIDE 0.9% 50 ML IV SCH (23:19)
[2018-05-27] MEDS: PROPOFOL 100 ML IV PRN ×4 (00:15→19:52)
[2018-05-27] MEDS: METHOCARBAMOL 500 MG TABLET PO PRN (01:55)
[2018-05-27] MEDS: FENTANYL PF 100 MCG/2ML IVPush PRN (01:55)
[2018-05-27] MEDS: LINEZOLID PMX 600MG/300ML 300 ML IV SCH ×2 (02:46→16:48)
[2018-05-27] MEDS: ALBUTEROL/IPRATROPIUM 2.5MG/0.5MG, 3 ML INLINE SCH ×6 (03:05→22:44)
[2018-05-27 05:14] LABS: MEAN CORPUSCULAR HEMOGLOBIN 31.8 pg (27.5-34.5); MEAN CORPUSCULAR HGB CONC 34.3 g/dL (33.2-36.2); MEAN CORPUSCULAR VOLUME 92.7 fL (81-97); MEAN PLATELET VOLUME 8.2 fL (7.4-10.4); PLATELET COUNT 377 x10^3/uL (130-400); RED BLOOD COUNT 2.57 x10^6/uL (4.38-5.82); RED CELL DISTRIBUTION WIDTH 15.3 % (9.4-14.8)
[2018-05-27 05:31] LABS: ANION GAP 9 mmol/L (5-15); CALCIUM 6.9 mg/dL (8.5-10.1); CHLORIDE 105 mmol/L (98-107)
[2018-05-27 05:33] LABS: CREATININE 1.47 mg/dL (0.7-1.3); VANCOMYCIN,RANDOM 19.1 mcg/mL
[2018-05-27 05:47] LABS: MD YES
[2018-05-27 05:48] LABS: ANISOCYTOSIS 1+; BAND#(MANUAL) 0.32 x10^3/uL; BANDS%(MANUAL) 2 % (0-7); LYMPHS% (MANUAL) 5 % (22-44); MONOS% (MANUAL) 5 % (2-9); NRBC % (MANUAL) 1 % (0-1); SEG#(MANUAL) 14.08 x10^3/uL (1.8-6.8); SEGS% (MANUAL) 88 % (42-75)
[2018-05-27 05:49] LABS: <PLATELET ESTIMATE> ADEQUATE; <PLT MORPHOLOGY> NORMAL PLT MORPH; POLYCHROMASIA 1+
[2018-05-27] MEDS: CARVEDILOL 12.5 MG TABLET PO SCH (06:06)
[2018-05-27] MEDS: INSULIN LISPRO 100 UNITS/ML, PEN SQ-INSULIN SCH ×4 (06:07→23:45)
[2018-05-27] MEDS: PANTOPRAZOLE 40 MG IV IVPush SCH (09:34)
[2018-05-27] MEDS: ENOXAPARIN 40 MG/0.4 ML SQ SCH (09:34)
[2018-05-27] MEDS: SODIUM CHLORIDE FLUSH 10ML SYR IVF SCH ×2 (09:34→19:52)
[2018-05-27] MEDS: SODIUM CHLORIDE 0.9% 1,000 ML IV SCH (11:52)
[2018-05-27] MEDS: FLUCONAZOLE 200 MG/100 ML 100 ML IV SCH (15:45)
[2018-05-27] MEDS ORDERED: ALBUMIN HUMAN 25% 100 ML IV ONE (16:30)
[2018-05-27] MEDS: CARVEDILOL 25 MG TABLET PO SCH (16:54)
[2018-05-27] MEDS: ERTAPENEM 1 GM in SODIUM CHLORIDE 0.9% 50 ML IV SCH (23:49)
[2018-05-28] MEDS: ALBUTEROL/IPRATROPIUM 2.5MG/0.5MG, 3 ML INLINE SCH ×6 (02:48→22:32)
[2018-05-28] MEDS: LINEZOLID PMX 600MG/300ML 300 ML IV SCH ×2 (03:19→14:37)
[2018-05-28] MEDS: PROPOFOL 100 ML IV PRN (03:27)
[2018-05-28] MEDS: INSULIN LISPRO 100 UNITS/ML, PEN SQ-INSULIN SCH ×4 (04:14→22:13)
[2018-05-28 04:24] LABS: MEAN CORPUSCULAR HEMOGLOBIN 30.9 pg (27.5-34.5); MEAN CORPUSCULAR HGB CONC 33.1 g/dL (33.2-36.2); MEAN CORPUSCULAR VOLUME 93.4 fL (81-97); MEAN PLATELET VOLUME 7.8 fL (7.4-10.4); PLATELET COUNT 407 x10^3/uL (130-400); RED BLOOD COUNT 2.49 x10^6/uL (4.38-5.82); RED CELL DISTRIBUTION WIDTH 15.6 % (9.4-14.8)
[2018-05-28 04:37] LABS: ANION GAP 9 mmol/L (5-15); CALCIUM 7.4 mg/dL (8.5-10.1); CHLORIDE 107 mmol/L (98-107); CREATININE 1.36 mg/dL (0.7-1.3); TRIGLYCERIDES 456 mg/dL (50-200)
[2018-05-28 04:55] LABS: FIO2 50 %
[2018-05-28 05:15] LABS: MD YES
[2018-05-28 05:18] LABS: BAND#(MANUAL) 0.67 x10^3/uL; BANDS%(MANUAL) 4 % (0-7); LYMPH#(MANUAL) 1.18 x10^3/uL (1-3.4); LYMPHS% (MANUAL) 7 % (22-44); MONOS#(MANUAL) 1.51 x10^3/uL (0.3-2.7); MONOS% (MANUAL) 9 % (2-9); SEG#(MANUAL) 13.44 x10^3/uL (1.8-6.8); SEGS% (MANUAL) 80 % (42-75)
[2018-05-28 05:19] LABS: ANISOCYTOSIS 1+; POLYCHROMASIA 1+
[2018-05-28 05:21] LABS: <PLATELET ESTIMATE> ADEQUATE; <PLT MORPHOLOGY> NORMAL PLT MORPH
[2018-05-28] MEDS: CARVEDILOL 25 MG TABLET PO SCH ×2 (05:38→17:51)
[2018-05-28] MEDS: ENOXAPARIN 40 MG/0.4 ML SQ SCH (08:31)
[2018-05-28] MEDS: PANTOPRAZOLE 40 MG IV IVPush SCH (08:31)
[2018-05-28] MEDS: SODIUM CHLORIDE FLUSH 10ML SYR IVF SCH ×2 (08:31→22:12)
[2018-05-28] MEDS: SODIUM CHLORIDE 0.9% 1,000 ML IV SCH (08:32)
[2018-05-28] MEDS: METHOCARBAMOL 500 MG TABLET PO PRN ×2 (09:42→22:13)
[2018-05-28] MEDS: FLUCONAZOLE 200 MG/100 ML 100 ML IV SCH (12:33)
[2018-05-28] MEDS: FENTANYL PF 100 MCG/2ML IVPush PRN (15:20)
[2018-05-28] MEDS ORDERED: INSULIN GLARGINE 100 UNITS/ML, PEN SQ-INSULIN SCH (22:00)
[2018-05-29] MEDS: DIPHENHYDRAMINE 50 MG/ML, 1ML IVPush PRN (01:28)
[2018-05-29] MEDS: ERTAPENEM 1 GM in SODIUM CHLORIDE 0.9% 50 ML IV SCH ×2 (01:50→23:49)
[2018-05-29] MEDS: hydrALAzine 20 MG/ML, 1ML IVPush PRN (02:00)
[2018-05-29] MEDS: ALBUTEROL/IPRATROPIUM 2.5MG/0.5MG, 3 ML INLINE SCH ×3 (02:18→11:00)
[2018-05-29] MEDS: LINEZOLID PMX 600MG/300ML 300 ML IV SCH ×2 (02:57→15:15)
[2018-05-29] MEDS: SODIUM CHLORIDE 0.9% 1,000 ML IV SCH ×2 (03:01→23:49)
[2018-05-29] MEDS: FENTANYL PF 100 MCG/2ML IVPush PRN (03:02)
[2018-05-29] MEDS: CARVEDILOL 25 MG TABLET PO SCH ×2 (04:09→17:26)
[2018-05-29] MEDS: INSULIN LISPRO 100 UNITS/ML, PEN SQ-INSULIN SCH ×4 (04:09→21:55)
[2018-05-29 04:25] LABS: MEAN CORPUSCULAR HEMOGLOBIN 30.7 pg (27.5-34.5); MEAN CORPUSCULAR HGB CONC 33.1 g/dL (33.2-36.2); MEAN CORPUSCULAR VOLUME 92.8 fL (81-97); MEAN PLATELET VOLUME 7.8 fL (7.4-10.4); PLATELET COUNT 460 x10^3/uL (130-400); RED BLOOD COUNT 2.55 x10^6/uL (4.38-5.82)
[2018-05-29 04:46] LABS: ANION GAP 6 mmol/L (5-15); CALCIUM 7.2 mg/dL (8.5-10.1); CHLORIDE 109 mmol/L (98-107); CREATININE 1.13 mg/dL (0.7-1.3)
[2018-05-29 05:48] LABS: MD YES
[2018-05-29 05:50] LABS: BAND#(MANUAL) 0.39 x10^3/uL; BANDS%(MANUAL) 2 % (0-7); EOS% (MANUAL) 1 % (1-7); LYMPH#(MANUAL) 1.57 x10^3/uL (1-3.4); LYMPHS% (MANUAL) 8 % (22-44); METAMYELOCYTES% (MANUAL) 1 % (0-1); MONOS#(MANUAL) 0.78 x10^3/uL (0.3-2.7); MONOS% (MANUAL) 4 % (2-9); MYELOCYTES# (MANUAL) 0.39 x10^3/uL (0-0); MYELOCYTES% (MANUAL) 2 % (0-0); SEG#(MANUAL) 16.07 x10^3/uL (1.8-6.8); SEGS% (MANUAL) 82 % (42-75)
[2018-05-29 05:51] LABS: ANISOCYTOSIS 1+
[2018-05-29 05:52] LABS: <PLATELET ESTIMATE> INCREASED; <PLT MORPHOLOGY> NORMAL PLT MORPH; POLYCHROMASIA 1+
[2018-05-29] MEDS: SODIUM CHLORIDE FLUSH 10ML SYR IVF SCH ×2 (08:49→21:54)
[2018-05-29] MEDS: ENOXAPARIN 40 MG/0.4 ML SQ SCH (08:49)
[2018-05-29] MEDS: PANTOPRAZOLE 40 MG IV IVPush SCH (08:55)
[2018-05-29] MEDS: FLUCONAZOLE 200 MG/100 ML 100 ML IV SCH (12:08)
[2018-05-29] MEDS ORDERED: ALBUTEROL/IPRATROPIUM 2.5MG/0.5MG, 3 ML NPPB PRN (13:00)
[2018-05-29] MEDS: INSULIN GLARGINE 100 UNITS/ML, PEN SQ-INSULIN SCH (21:55)
[2018-05-30] MEDS: LINEZOLID PMX 600MG/300ML 300 ML IV SCH ×2 (02:11→14:30)
[2018-05-30] MEDS: INSULIN LISPRO 100 UNITS/ML, PEN SQ-INSULIN SCH ×4 (04:09→23:26)
[2018-05-30 04:25] LABS: MEAN CORPUSCULAR HEMOGLOBIN 31.1 pg (27.5-34.5); MEAN CORPUSCULAR HGB CONC 33.4 g/dL (33.2-36.2); MEAN CORPUSCULAR VOLUME 93.2 fL (81-97); MEAN PLATELET VOLUME 7.8 fL (7.4-10.4); PLATELET COUNT 504 x10^3/uL (130-400); RED BLOOD COUNT 2.66 x10^6/uL (4.38-5.82); RED CELL DISTRIBUTION WIDTH 15.1 % (9.4-14.8)
[2018-05-30 04:36] LABS: ANION GAP 5 mmol/L (5-15); CALCIUM 7.1 mg/dL (8.5-10.1); CHLORIDE 109 mmol/L (98-107)
[2018-05-30 04:37] LABS: CREATININE 0.98 mg/dL (0.7-1.3)
[2018-05-30] MEDS: CARVEDILOL 25 MG TABLET PO SCH ×2 (05:14→17:46)
[2018-05-30 05:43] LABS: MD YES
[2018-05-30 05:45] LABS: BAND#(MANUAL) 0.62 x10^3/uL; BANDS%(MANUAL) 3 % (0-7); LYMPH#(MANUAL) 1.03 x10^3/uL (1-3.4); LYMPHS% (MANUAL) 5 % (22-44); METAMYELOCYTES# (MANUAL) 0.21 x10^3/uL (0-0); METAMYELOCYTES% (MANUAL) 1 % (0-1); MONOS#(MANUAL) 0.82 x10^3/uL (0.3-2.7); MONOS% (MANUAL) 4 % (2-9); MYELOCYTES# (MANUAL) 0.41 x10^3/uL (0-0); MYELOCYTES% (MANUAL) 2 % (0-0); SEG#(MANUAL) 17.43 x10^3/uL (1.8-6.8); SEGS% (MANUAL) 85 % (42-75)
[2018-05-30 05:46] LABS: ANISOCYTOSIS 1+; HYPOCHROMIA 1+
[2018-05-30 05:47] LABS: <PLATELET ESTIMATE> INCREASED; <PLT MORPHOLOGY> NORMAL PLT MORPH; POLYCHROMASIA 1+
[2018-05-30] MEDS: PANTOPRAZOLE 40 MG IV IVPush SCH (08:50)
[2018-05-30] MEDS: SODIUM CHLORIDE FLUSH 10ML SYR IVF SCH ×2 (08:51→20:18)
[2018-05-30] MEDS: ENOXAPARIN 40 MG/0.4 ML SQ SCH (08:51)
[2018-05-30] MEDS: ALBUMIN HUMAN 25% 100 ML IV SCH ×2 (08:51→17:47)
[2018-05-30] MEDS: FUROSEMIDE 20 MG/2 ML IV SCH ×2 (10:00→20:13)
[2018-05-30] MEDS: ALBUTEROL/IPRATROPIUM 2.5MG/0.5MG, 3 ML NPPB SCH ×4 (10:30→23:00)
[2018-05-30] MEDS ORDERED: LIDOCAINE-MPF 2%, 2ML ONE (11:30)
[2018-05-30] MEDS: FLUCONAZOLE 200 MG/100 ML 100 ML IV SCH (14:13)
[2018-05-30] MEDS ORDERED: FUROSEMIDE 20 MG/2 ML IV ONE (19:00)
[2018-05-30] MEDS: INSULIN GLARGINE 100 UNITS/ML, PEN SQ-INSULIN SCH (20:19)
[2018-05-30] MEDS: ERTAPENEM 1 GM in SODIUM CHLORIDE 0.9% 50 ML IV SCH (23:22)
[2018-05-31] MEDS: ALBUMIN HUMAN 25% 100 ML IV SCH ×4 (00:30→23:40)
[2018-05-31] MEDS: ACETAMINOPHEN 325 MG TABLET PO PRN ×2 (02:00→13:26)
[2018-05-31] MEDS: ALBUTEROL/IPRATROPIUM 2.5MG/0.5MG, 3 ML NPPB SCH ×5 (02:42→23:00)
[2018-05-31] MEDS: LINEZOLID PMX 600MG/300ML 300 ML IV SCH ×2 (03:12→15:15)
[2018-05-31] MEDS: SODIUM CHLORIDE 0.9% 1,000 ML IV SCH (04:00)
[2018-05-31] MEDS: INSULIN LISPRO 100 UNITS/ML, PEN SQ-INSULIN SCH ×4 (05:00→23:43)
[2018-05-31 05:21] LABS: ANION GAP 8 mmol/L (5-15); CALCIUM 7.4 mg/dL (8.5-10.1); CHLORIDE 110 mmol/L (98-107); CREATININE 0.93 mg/dL (0.7-1.3)
[2018-05-31 05:26] LABS: BASOPHILS % (AUTO) 0 % (0-1); EOSINOPHILS # (AUTO) 0.12 x10^3/uL (0-0.4); EOSINOPHILS % (AUTO) 1 % (1-7); LYMPHOCYTES # (AUTO) 0.97 x10^3/uL (1-3.4); LYMPHOCYTES % (AUTO) 7 % (22-44); MD NO; MEAN CORPUSCULAR HEMOGLOBIN 31.5 pg (27.5-34.5); MEAN CORPUSCULAR HGB CONC 33.8 g/dL (33.2-36.2); MEAN CORPUSCULAR VOLUME 93.1 fL (81-97); MEAN PLATELET VOLUME 7.9 fL (7.4-10.4); MONOCYTES # (AUTO) 1.34 x10^3/uL (0.2-0.8); MONOCYTES % (AUTO) 9 % (2-9); NEUTROPHILS # (AUTO) 12.55 x10^3/uL (1.8-6.8); NEUTROPHILS % (AUTO) 84 % (42-75); PLATELET COUNT 469 x10^3/uL (130-400); RED BLOOD COUNT 2.35 x10^6/uL (4.38-5.82); RED CELL DISTRIBUTION WIDTH 14.7 % (9.4-14.8)
[2018-05-31] MEDS: CARVEDILOL 25 MG TABLET PO SCH ×2 (05:32→17:35)
[2018-05-31] MEDS: PANTOPRAZOLE 40 MG IV IVPush SCH (08:42)
[2018-05-31] MEDS: ENOXAPARIN 40 MG/0.4 ML SQ SCH (08:42)
[2018-05-31] MEDS: SODIUM CHLORIDE FLUSH 10ML SYR IVF SCH ×2 (08:43→21:24)
[2018-05-31] MEDS: POTASSIUM CHLORIDE 10% 40 MEQ/30 ML UDC GT SCH ×2 (10:18→21:23)
[2018-05-31] MEDS: FUROSEMIDE 20 MG/2 ML IV SCH ×2 (10:20→21:26)
[2018-05-31] MEDS: FLUCONAZOLE 200 MG/100 ML 100 ML IV SCH (12:41)
[2018-05-31] MEDS: hydrALAzine 20 MG/ML, 1ML IVPush PRN ×2 (13:26→17:46)
[2018-05-31] MEDS: INSULIN GLARGINE 100 UNITS/ML, PEN SQ-INSULIN SCH (21:25)
[2018-05-31] MEDS: ERTAPENEM 1 GM in SODIUM CHLORIDE 0.9% 50 ML IV SCH (23:39)
[2018-06-01] MEDS: ALBUTEROL/IPRATROPIUM 2.5MG/0.5MG, 3 ML NPPB SCH ×5 (03:00→19:00)
[2018-06-01] MEDS: LINEZOLID PMX 600MG/300ML 300 ML IV SCH ×2 (03:05→14:23)
[2018-06-01 04:40] LABS: MEAN CORPUSCULAR HGB CONC 32.3 g/dL (33.2-36.2); MEAN PLATELET VOLUME 8.4 fL (7.4-10.4); PLATELET COUNT 506 x10^3/uL (130-400); RED BLOOD COUNT 2.56 x10^6/uL (4.38-5.82); RED CELL DISTRIBUTION WIDTH 14.7 % (9.4-14.8)
[2018-06-01 04:54] LABS: ANION GAP 7 mmol/L (5-15); CHLORIDE 110 mmol/L (98-107)
[2018-06-01 04:55] LABS: CREATININE 0.94 mg/dL (0.7-1.3)
[2018-06-01 04:57] LABS: BASOPHILS % (AUTO) 1 % (0-1); EOSINOPHILS # (AUTO) 0.07 x10^3/uL (0-0.4); EOSINOPHILS % (AUTO) 0 % (1-7); LYMPHOCYTES # (AUTO) 1.05 x10^3/uL (1-3.4); LYMPHOCYTES % (AUTO) 6 % (22-44); MD SCAN; MONOCYTES # (AUTO) 1.02 x10^3/uL (0.2-0.8); MONOCYTES % (AUTO) 6 % (2-9); NEUTROPHILS # (AUTO) 15.41 x10^3/uL (1.8-6.8); NEUTROPHILS % (AUTO) 87 % (42-75)
[2018-06-01] MEDS: CARVEDILOL 25 MG TABLET PO SCH ×2 (06:12→17:30)
[2018-06-01] MEDS: INSULIN LISPRO 100 UNITS/ML, PEN SQ-INSULIN SCH ×4 (06:12→21:59)
[2018-06-01] MEDS: SODIUM BICARBONATE 4.0%, 5ML NPPB SCH ×4 (07:00→19:00)
[2018-06-01] MEDS: ALBUMIN HUMAN 25% 100 ML IV SCH ×2 (08:54→17:30)
[2018-06-01] MEDS: SODIUM CHLORIDE FLUSH 10ML SYR IVF SCH ×2 (08:55→21:00)
[2018-06-01] MEDS: PANTOPRAZOLE 40 MG IV IVPush SCH (08:55)
[2018-06-01] MEDS: FUROSEMIDE 20 MG/2 ML IV SCH ×2 (08:55→21:30)
[2018-06-01] MEDS: ENOXAPARIN 40 MG/0.4 ML SQ SCH ×2 (08:55→14:24)
[2018-06-01] MEDS: FLUCONAZOLE 200 MG/100 ML 100 ML IV SCH (14:23)
[2018-06-01] MEDS: INSULIN GLARGINE 100 UNITS/ML, PEN SQ-INSULIN SCH (21:59)
[2018-06-02] MEDS: SODIUM BICARBONATE 4.0%, 5ML NPPB SCH ×7 (00:39→23:06)
[2018-06-02] MEDS: ALBUTEROL/IPRATROPIUM 2.5MG/0.5MG, 3 ML NPPB SCH ×5 (00:39→15:00)
[2018-06-02] MEDS: ERTAPENEM 1 GM in SODIUM CHLORIDE 0.9% 50 ML IV SCH (01:25)
[2018-06-02] MEDS: ALBUMIN HUMAN 25% 100 ML IV SCH (01:26)
[2018-06-02] MEDS: LINEZOLID PMX 600MG/300ML 300 ML IV SCH ×2 (03:22→14:49)
[2018-06-02 04:05] LABS: MEAN CORPUSCULAR HEMOGLOBIN 31.2 pg (27.5-34.5); MEAN CORPUSCULAR HGB CONC 33.4 g/dL (33.2-36.2); MEAN CORPUSCULAR VOLUME 93.4 fL (81-97); MEAN PLATELET VOLUME 7.9 fL (7.4-10.4); PLATELET COUNT 474 x10^3/uL (130-400); RED BLOOD COUNT 2.49 x10^6/uL (4.38-5.82); RED CELL DISTRIBUTION WIDTH 15.5 % (9.4-14.8)
[2018-06-02 04:18] LABS: ANION GAP 5 mmol/L (5-15); CALCIUM 7.9 mg/dL (8.5-10.1); CHLORIDE 107 mmol/L (98-107)
[2018-06-02 04:20] LABS: CREATININE 1.07 mg/dL (0.7-1.3)
[2018-06-02 05:00] LABS: BASOPHILS # (AUTO) 0.12 x10^3/uL (0-0.1); BASOPHILS % (AUTO) 1 % (0-1); EOSINOPHILS # (AUTO) 0.11 x10^3/uL (0-0.4); EOSINOPHILS % (AUTO) 1 % (1-7); LYMPHOCYTES % (AUTO) 7 % (22-44); MD SCAN; MONOCYTES # (AUTO) 1.02 x10^3/uL (0.2-0.8); MONOCYTES % (AUTO) 6 % (2-9); NEUTROPHILS % (AUTO) 86 % (42-75)
[2018-06-02] MEDS: CARVEDILOL 25 MG TABLET PO SCH ×2 (05:25→18:00)
[2018-06-02] MEDS: INSULIN LISPRO 100 UNITS/ML, PEN SQ-INSULIN SCH ×4 (05:26→22:04)
[2018-06-02] MEDS: SODIUM CHLORIDE FLUSH 10ML SYR IVF SCH (09:00)
[2018-06-02] MEDS: PANTOPRAZOLE 40 MG IV IVPush SCH (09:00)
[2018-06-02] MEDS ORDERED: FENTANYL PF 100 MCG/2ML IVPush PRN (10:30)
[2018-06-02] MEDS: ALBUTEROL/IPRATROPIUM 2.5MG/0.5MG, 3 ML INLINE SCH ×4 (10:30→23:05)
[2018-06-02] MEDS ORDERED: PHARMACY MAY ADJ FOR RENAL FX MC SCH (10:30)
[2018-06-02] MEDS ORDERED: BISACODYL 10 MG SUPP PR PRN (10:30)
[2018-06-02] MEDS ORDERED: GLUCAGON 1 MG IM PRN (10:30)
[2018-06-02] MEDS ORDERED: LIDOCAINE-MPF 1%, 2ML ENDO PRN (10:30)
[2018-06-02] MEDS ORDERED: DEXTROSE 50%, 50ML SYRINGE IVPush PRN (10:30)
[2018-06-02] MEDS ORDERED: SODIUM CHLORIDE FLUSH 10ML SYR IVF SCH (10:30)
[2018-06-02] MEDS ORDERED: SENNA/DOCUSATE TABLET NG PRN (10:30)
[2018-06-02] MEDS ORDERED: DEXTROSE 4 GM TAB.CHEW PO PRN (10:30)
[2018-06-02] MEDS ORDERED: PROPOFOL 10 MG/ML, 100ML IV ONE (11:37)
[2018-06-02] MEDS ORDERED: MIDAZOLAM 1 MG/ML, 5ML ONE (11:37)
[2018-06-02] MEDS ORDERED: SUCCINYLCHOLINE 20 MG/ML, 10ML ONE (11:37)
[2018-06-02] MEDS: FLUCONAZOLE 200 MG/100 ML 100 ML IV SCH (13:30)
[2018-06-02] MEDS ORDERED: BUPIVACAINE/PF-EPI 0.5% 1:200K ONE (13:56)
[2018-06-02] MEDS: PROPOFOL 100 ML IV PRN (14:51)
[2018-06-02] MEDS: SODIUM CHLORIDE 0.9% 1,000 ML IV SCH (18:30)
[2018-06-02] MEDS: INSULIN GLARGINE 100 UNITS/ML, PEN SQ-INSULIN SCH (22:04)
[2018-06-03] MEDS: PROPOFOL 100 ML IV PRN ×3 (00:53→19:59)
[2018-06-03] MEDS: ERTAPENEM 1 GM in SODIUM CHLORIDE 0.9% 50 ML IV SCH (00:53)
[2018-06-03] MEDS: LINEZOLID PMX 600MG/300ML 300 ML IV SCH ×2 (01:50→15:44)
[2018-06-03] MEDS: ALBUTEROL/IPRATROPIUM 2.5MG/0.5MG, 3 ML INLINE SCH ×6 (02:17→23:00)
[2018-06-03] MEDS: SODIUM BICARBONATE 4.0%, 5ML NPPB SCH ×3 (02:18→10:57)
[2018-06-03 04:27] LABS: MEAN CORPUSCULAR HEMOGLOBIN 30.1 pg (27.5-34.5); MEAN CORPUSCULAR HGB CONC 32.5 g/dL (33.2-36.2); MEAN CORPUSCULAR VOLUME 92.6 fL (81-97); MEAN PLATELET VOLUME 8.1 fL (7.4-10.4); PLATELET COUNT 466 x10^3/uL (130-400); RED BLOOD COUNT 2.48 x10^6/uL (4.38-5.82); RED CELL DISTRIBUTION WIDTH 15.2 % (9.4-14.8)
[2018-06-03 04:32] LABS: ALANINE AMINOTRANSFERASE 36 U/L (12-78); ALBUMIN 2.7 g/dL (3.4-5.0); ANION GAP 7 mmol/L (5-15); CALCIUM 7.6 mg/dL (8.5-10.1); CHLORIDE 106 mmol/L (98-107); CREATININE 1.04 mg/dL (0.7-1.3)
[2018-06-03 04:34] LABS: ALKALINE PHOSPHATASE 57 U/L (45-117); BILIRUBIN,TOTAL 0.6 mg/dL (0.2-1.0); TOTAL PROTEIN 5.3 g/dL (6.4-8.2)
[2018-06-03 04:38] LABS: BASOPHILS # (AUTO) 0.01 x10^3/uL (0-0.1); BASOPHILS % (AUTO) 0 % (0-1); EOSINOPHILS % (AUTO) 1 % (1-7); LYMPHOCYTES # (AUTO) 1.13 x10^3/uL (1-3.4); LYMPHOCYTES % (AUTO) 9 % (22-44); MD SCAN; MONOCYTES # (AUTO) 0.92 x10^3/uL (0.2-0.8); MONOCYTES % (AUTO) 7 % (2-9); NEUTROPHILS # (AUTO) 11.04 x10^3/uL (1.8-6.8); NEUTROPHILS % (AUTO) 84 % (42-75)
[2018-06-03] MEDS: CARVEDILOL 25 MG TABLET PO SCH ×2 (04:56→18:00)
[2018-06-03] MEDS: INSULIN LISPRO 100 UNITS/ML, PEN SQ-INSULIN SCH ×4 (05:14→23:42)
[2018-06-03] MEDS: ENOXAPARIN 40 MG/0.4 ML SQ SCH (07:30)
[2018-06-03] MEDS: PANTOPRAZOLE 40 MG IV IVPush SCH (08:12)
[2018-06-03] MEDS: SODIUM CHLORIDE 0.9% 1,000 ML IV SCH (08:12)
[2018-06-03 09:25] LABS: FIO2 50 %
[2018-06-03] MEDS: D5%-0.45% NACL 1,000 ML IV SCH (10:45)
[2018-06-03] MEDS: FLUCONAZOLE 200 MG/100 ML 100 ML IV SCH (15:43)
[2018-06-03] MEDS: INSULIN GLARGINE 100 UNITS/ML, PEN SQ-INSULIN SCH (19:59)
[2018-06-04] MEDS: ERTAPENEM 1 GM in SODIUM CHLORIDE 0.9% 50 ML IV SCH (00:36)
[2018-06-04] MEDS: PROPOFOL 100 ML IV PRN ×3 (01:41→16:34)
[2018-06-04] MEDS: ALBUTEROL/IPRATROPIUM 2.5MG/0.5MG, 3 ML INLINE SCH ×6 (02:45→22:16)
[2018-06-04] MEDS: LINEZOLID PMX 600MG/300ML 300 ML IV SCH ×2 (02:47→16:18)
[2018-06-04 05:25] LABS: MEAN CORPUSCULAR HEMOGLOBIN 30.3 pg (27.5-34.5); MEAN CORPUSCULAR HGB CONC 32.8 g/dL (33.2-36.2); MEAN CORPUSCULAR VOLUME 92.2 fL (81-97); PLATELET COUNT 435 x10^3/uL (130-400); RED BLOOD COUNT 2.49 x10^6/uL (4.38-5.82); RED CELL DISTRIBUTION WIDTH 15.2 % (9.4-14.8)
[2018-06-04 05:39] LABS: ANION GAP 7 mmol/L (5-15); CALCIUM 7.1 mg/dL (8.5-10.1); CHLORIDE 106 mmol/L (98-107)
[2018-06-04 05:42] LABS: CREATININE 1.01 mg/dL (0.7-1.3)
[2018-06-04 05:55] LABS: BASOPHILS # (AUTO) 0.03 x10^3/uL (0-0.1); BASOPHILS % (AUTO) 0 % (0-1); EOSINOPHILS # (AUTO) 0.05 x10^3/uL (0-0.4); EOSINOPHILS % (AUTO) 0 % (1-7); LYMPHOCYTES # (AUTO) 1.06 x10^3/uL (1-3.4); LYMPHOCYTES % (AUTO) 8 % (22-44); MD SCAN; MONOCYTES # (AUTO) 1.03 x10^3/uL (0.2-0.8); MONOCYTES % (AUTO) 8 % (2-9); NEUTROPHILS # (AUTO) 10.97 x10^3/uL (1.8-6.8); NEUTROPHILS % (AUTO) 84 % (42-75)
[2018-06-04] MEDS: INSULIN LISPRO 100 UNITS/ML, PEN SQ-INSULIN SCH ×4 (05:55→23:06)
[2018-06-04] MEDS: CARVEDILOL 25 MG TABLET PO SCH ×2 (05:55→18:00)
[2018-06-04] MEDS: D5%-0.45% NACL 1,000 ML IV SCH (05:56)
[2018-06-04] MEDS: ENOXAPARIN 40 MG/0.4 ML SQ SCH (10:35)
[2018-06-04] MEDS: PANTOPRAZOLE 40 MG IV IVPush SCH (10:35)
[2018-06-04] MEDS ORDERED: FUROSEMIDE 20 MG/2 ML IV ONE (11:30)
[2018-06-04] MEDS: FLUCONAZOLE 200 MG/100 ML 100 ML IV SCH (14:18)
[2018-06-04] MEDS ORDERED: SODIUM CHLORIDE 0.9% 500 ML IV SCH (19:00)
[2018-06-04] MEDS: INSULIN GLARGINE 100 UNITS/ML, PEN SQ-INSULIN SCH (21:50)
[2018-06-04] MEDS: METOCLOPRAMIDE 5 MG/ML, 2ML IVPush SCH (21:50)
[2018-06-05] MEDS: ERTAPENEM 1 GM in SODIUM CHLORIDE 0.9% 50 ML IV SCH (00:31)
[2018-06-05] MEDS: ALBUTEROL/IPRATROPIUM 2.5MG/0.5MG, 3 ML INLINE SCH ×6 (02:27→22:30)
[2018-06-05] MEDS: LINEZOLID PMX 600MG/300ML 300 ML IV SCH ×2 (02:33→14:31)
[2018-06-05] MEDS: FENTANYL PF 100 MCG/2ML IVPush PRN (02:33)
[2018-06-05] MEDS: PROPOFOL 100 ML IV PRN ×4 (03:23→20:11)
[2018-06-05 04:57] LABS: BASOPHILS # (AUTO) 0.15 x10^3/uL (0-0.1); BASOPHILS % (AUTO) 1 % (0-1); EOSINOPHILS # (AUTO) 0.07 x10^3/uL (0-0.4); EOSINOPHILS % (AUTO) 1 % (1-7); LYMPHOCYTES # (AUTO) 0.96 x10^3/uL (1-3.4); LYMPHOCYTES % (AUTO) 7 % (22-44); MD NO; MEAN CORPUSCULAR HEMOGLOBIN 30.6 pg (27.5-34.5); MEAN CORPUSCULAR HGB CONC 33.3 g/dL (33.2-36.2); MEAN CORPUSCULAR VOLUME 92.1 fL (81-97); MEAN PLATELET VOLUME 7.7 fL (7.4-10.4); MONOCYTES # (AUTO) 1.08 x10^3/uL (0.2-0.8); MONOCYTES % (AUTO) 8 % (2-9); NEUTROPHILS # (AUTO) 11.52 x10^3/uL (1.8-6.8); NEUTROPHILS % (AUTO) 84 % (42-75); PLATELET COUNT 408 x10^3/uL (130-400); RED BLOOD COUNT 2.47 x10^6/uL (4.38-5.82); RED CELL DISTRIBUTION WIDTH 14.7 % (9.4-14.8)
[2018-06-05] MEDS: INSULIN LISPRO 100 UNITS/ML, PEN SQ-INSULIN SCH ×3 (05:00→16:59)
[2018-06-05 05:01] LABS: ANION GAP 5 mmol/L (5-15); CHLORIDE 106 mmol/L (98-107); CREATININE 1.09 mg/dL (0.7-1.3); TRIGLYCERIDES 139 mg/dL (50-200)
[2018-06-05] MEDS: CARVEDILOL 25 MG TABLET PO SCH ×2 (06:00→17:00)
[2018-06-05] MEDS: FUROSEMIDE 20 MG/2 ML IV SCH ×2 (09:06→20:12)
[2018-06-05] MEDS: PANTOPRAZOLE 40 MG IV IVPush SCH (09:06)
[2018-06-05] MEDS: METOCLOPRAMIDE 5 MG/ML, 2ML IVPush SCH ×2 (09:06→20:12)
[2018-06-05] MEDS: ENOXAPARIN 40 MG/0.4 ML SQ SCH (09:07)
[2018-06-05] MEDS: FLUCONAZOLE 200 MG/100 ML 100 ML IV SCH (12:35)
[2018-06-05] MEDS: INSULIN GLARGINE 100 UNITS/ML, PEN SQ-INSULIN SCH (20:11)
[2018-06-06] MEDS: ERTAPENEM 1 GM in SODIUM CHLORIDE 0.9% 50 ML IV SCH (00:07)
[2018-06-06] MEDS: INSULIN LISPRO 100 UNITS/ML, PEN SQ-INSULIN SCH ×5 (00:07→22:34)
[2018-06-06] MEDS: ALBUTEROL/IPRATROPIUM 2.5MG/0.5MG, 3 ML INLINE SCH ×6 (01:57→22:30)
[2018-06-06] MEDS: LINEZOLID PMX 600MG/300ML 300 ML IV SCH ×2 (02:52→15:00)
[2018-06-06] MEDS: PROPOFOL 100 ML IV PRN ×2 (02:52→14:59)
[2018-06-06 03:48] LABS: ANION GAP 9 mmol/L (5-15); CALCIUM 7.4 mg/dL (8.5-10.1); CHLORIDE 104 mmol/L (98-107); CREATININE 1.08 mg/dL (0.7-1.3)
[2018-06-06 03:56] LABS: MEAN CORPUSCULAR HEMOGLOBIN 30.5 pg (27.5-34.5); MEAN CORPUSCULAR HGB CONC 32.8 g/dL (33.2-36.2); MEAN CORPUSCULAR VOLUME 93.1 fL (81-97); MEAN PLATELET VOLUME 7.9 fL (7.4-10.4); PLATELET COUNT 408 x10^3/uL (130-400); RED BLOOD COUNT 2.45 x10^6/uL (4.38-5.82)
[2018-06-06 04:24] LABS: BASOPHILS # (AUTO) 0.06 x10^3/uL (0-0.1); BASOPHILS % (AUTO) 1 % (0-1); EOSINOPHILS # (AUTO) 0.17 x10^3/uL (0-0.4); EOSINOPHILS % (AUTO) 1 % (1-7); LYMPHOCYTES # (AUTO) 1.19 x10^3/uL (1-3.4); LYMPHOCYTES % (AUTO) 10 % (22-44); MD SCAN; MONOCYTES # (AUTO) 1.13 x10^3/uL (0.2-0.8); MONOCYTES % (AUTO) 9 % (2-9); NEUTROPHILS % (AUTO) 79 % (42-75)
[2018-06-06] MEDS: CARVEDILOL 25 MG TABLET PO SCH ×2 (05:42→17:18)
[2018-06-06] MEDS ORDERED: POTASSIUM CHLORIDE 40 MEQ in SODIUM CHLORIDE 0.9% 100 ML IV ONE (06:30)
[2018-06-06] MEDS ORDERED: POTASSIUM CHLORIDE 20 MEQ PACKET PO ONE (06:30)
[2018-06-06] MEDS: PANTOPRAZOLE 40 MG IV IVPush SCH (08:47)
[2018-06-06] MEDS: FUROSEMIDE 20 MG/2 ML IV SCH ×2 (08:47→22:33)
[2018-06-06] MEDS: METOCLOPRAMIDE 5 MG/ML, 2ML IVPush SCH ×2 (08:48→22:37)
[2018-06-06] MEDS: ENOXAPARIN 40 MG/0.4 ML SQ SCH (08:48)
[2018-06-06] MEDS: FLUCONAZOLE 200 MG/100 ML 100 ML IV SCH (13:05)
[2018-06-06] MEDS: POTASSIUM CHLORIDE 20 MEQ TAB.ER.PRT PO SCH (17:18)
[2018-06-06] MEDS: INSULIN GLARGINE 100 UNITS/ML, PEN SQ-INSULIN SCH (22:34)
[2018-06-07] MEDS: ERTAPENEM 1 GM in SODIUM CHLORIDE 0.9% 50 ML IV SCH (00:08)
[2018-06-07] MEDS: PROPOFOL 100 ML IV PRN ×4 (00:08→18:38)
[2018-06-07] MEDS: ALBUTEROL/IPRATROPIUM 2.5MG/0.5MG, 3 ML INLINE SCH ×6 (02:30→22:39)
[2018-06-07] MEDS: LINEZOLID PMX 600MG/300ML 300 ML IV SCH ×2 (03:09→13:24)
[2018-06-07 05:07] LABS: ANION GAP 5 mmol/L (5-15); CALCIUM 6.9 mg/dL (8.5-10.1); CHLORIDE 105 mmol/L (98-107)
[2018-06-07 05:13] LABS: MEAN CORPUSCULAR HEMOGLOBIN 31.1 pg (27.5-34.5); MEAN CORPUSCULAR HGB CONC 33.6 g/dL (33.2-36.2); MEAN CORPUSCULAR VOLUME 92.5 fL (81-97); PLATELET COUNT 329 x10^3/uL (130-400)
[2018-06-07] MEDS: CARVEDILOL 25 MG TABLET PO SCH ×2 (05:19→17:29)
[2018-06-07] MEDS: INSULIN LISPRO 100 UNITS/ML, PEN SQ-INSULIN SCH ×4 (05:35→23:00)
[2018-06-07 05:40] LABS: BASOPHILS # (AUTO) 0.16 x10^3/uL (0-0.1); BASOPHILS % (AUTO) 2 % (0-1); EOSINOPHILS # (AUTO) 0.36 x10^3/uL (0-0.4); EOSINOPHILS % (AUTO) 3 % (1-7); LYMPHOCYTES % (AUTO) 10 % (22-44); MD SCAN; MONOCYTES % (AUTO) 9 % (2-9); NEUTROPHILS # (AUTO) 7.96 x10^3/uL (1.8-6.8); NEUTROPHILS % (AUTO) 75 % (42-75)
[2018-06-07] MEDS: FUROSEMIDE 20 MG/2 ML IV SCH (08:29)
[2018-06-07] MEDS: POTASSIUM CHLORIDE 20 MEQ TAB.ER.PRT PO SCH (08:29)
[2018-06-07] MEDS: PANTOPRAZOLE 40 MG IV IVPush SCH (08:29)
[2018-06-07] MEDS: ENOXAPARIN 40 MG/0.4 ML SQ SCH (08:31)
[2018-06-07] MEDS: METOCLOPRAMIDE 5 MG/ML, 2ML IVPush SCH ×2 (11:55→22:06)
[2018-06-07] MEDS: FLUCONAZOLE 200 MG/100 ML 100 ML IV SCH (13:24)
[2018-06-07] MEDS: AcetaZOLAMIDE INJ 500 MG IVPush SCH ×2 (13:24→22:07)
[2018-06-07] MEDS: INSULIN GLARGINE 100 UNITS/ML, PEN SQ-INSULIN SCH (22:08)
[2018-06-08] MEDS: ERTAPENEM 1 GM in SODIUM CHLORIDE 0.9% 50 ML IV SCH ×2 (00:40→23:49)
[2018-06-08] MEDS: ALBUTEROL/IPRATROPIUM 2.5MG/0.5MG, 3 ML INLINE SCH ×6 (01:50→22:30)
[2018-06-08] MEDS: LINEZOLID PMX 600MG/300ML 300 ML IV SCH ×2 (02:21→14:30)
[2018-06-08] MEDS: PROPOFOL 100 ML IV PRN (04:25)
[2018-06-08] MEDS: INSULIN LISPRO 100 UNITS/ML, PEN SQ-INSULIN SCH ×4 (05:00→23:00)
[2018-06-08 05:27] LABS: BASOPHILS # (AUTO) 0.05 x10^3/uL (0-0.1); BASOPHILS % (AUTO) 1 % (0-1); EOSINOPHILS # (AUTO) 0.15 x10^3/uL (0-0.4); EOSINOPHILS % (AUTO) 2 % (1-7); LYMPHOCYTES # (AUTO) 1.14 x10^3/uL (1-3.4); LYMPHOCYTES % (AUTO) 14 % (22-44); MD NO; MEAN CORPUSCULAR HEMOGLOBIN 31.1 pg (27.5-34.5); MEAN CORPUSCULAR HGB CONC 33.7 g/dL (33.2-36.2); MEAN CORPUSCULAR VOLUME 92.5 fL (81-97); MEAN PLATELET VOLUME 7.9 fL (7.4-10.4); MONOCYTES # (AUTO) 0.86 x10^3/uL (0.2-0.8); MONOCYTES % (AUTO) 10 % (2-9); NEUTROPHILS # (AUTO) 6.17 x10^3/uL (1.8-6.8); NEUTROPHILS % (AUTO) 74 % (42-75); PLATELET COUNT 363 x10^3/uL (130-400); RED BLOOD COUNT 2.34 x10^6/uL (4.38-5.82); RED CELL DISTRIBUTION WIDTH 14.7 % (9.4-14.8)
[2018-06-08 05:31] LABS: CHLORIDE 104 mmol/L (98-107)
[2018-06-08 05:36] LABS: ANION GAP 7 mmol/L (5-15); CALCIUM 7.7 mg/dL (8.5-10.1); CREATININE 0.89 mg/dL (0.7-1.3); TRIGLYCERIDES 163 mg/dL (50-200)
[2018-06-08] MEDS: CARVEDILOL 25 MG TABLET PO SCH ×2 (05:47→17:17)
[2018-06-08] MEDS ORDERED: POTASSIUM CHLORIDE 20 MEQ PACKET PO SCH (08:00)
[2018-06-08] MEDS: FUROSEMIDE 20 MG/2 ML IV SCH (09:30)
[2018-06-08] MEDS: PANTOPRAZOLE 40 MG IV IVPush SCH (09:30)
[2018-06-08] MEDS: METOCLOPRAMIDE 5 MG/ML, 2ML IVPush SCH ×2 (09:30→20:19)
[2018-06-08] MEDS: ENOXAPARIN 40 MG/0.4 ML SQ SCH (09:31)
[2018-06-08] MEDS: AcetaZOLAMIDE INJ 500 MG IVPush SCH ×2 (09:32→20:19)
[2018-06-08] MEDS: FLUCONAZOLE 200 MG/100 ML 100 ML IV SCH (12:56)
[2018-06-08] MEDS: POTASSIUM CHLORIDE 20 MEQ PACKET PO SCH ×2 (14:30→23:49)
[2018-06-08] MEDS: FENTANYL PF 100 MCG/2ML IVPush PRN (20:18)
[2018-06-08] MEDS: INSULIN GLARGINE 100 UNITS/ML, PEN SQ-INSULIN SCH (20:20)
[2018-06-09] MEDS: ALBUTEROL/IPRATROPIUM 2.5MG/0.5MG, 3 ML INLINE SCH ×6 (02:30→22:45)
[2018-06-09] MEDS: LINEZOLID PMX 600MG/300ML 300 ML IV SCH ×2 (02:45→15:18)
[2018-06-09] MEDS: FENTANYL PF 100 MCG/2ML IVPush PRN ×2 (02:45→20:30)
[2018-06-09 04:36] LABS: ANION GAP 7 mmol/L (5-15); CALCIUM 7.8 mg/dL (8.5-10.1); CHLORIDE 108 mmol/L (98-107); CREATININE 0.97 mg/dL (0.7-1.3)
[2018-06-09 04:38] LABS: MEAN CORPUSCULAR HEMOGLOBIN 30.8 pg (27.5-34.5); MEAN CORPUSCULAR HGB CONC 33.4 g/dL (33.2-36.2); MEAN CORPUSCULAR VOLUME 92.2 fL (81-97); MEAN PLATELET VOLUME 7.7 fL (7.4-10.4); PLATELET COUNT 350 x10^3/uL (130-400); RED BLOOD COUNT 2.47 x10^6/uL (4.38-5.82)
[2018-06-09 04:59] LABS: BASOPHILS % (AUTO) 1 % (0-1); EOSINOPHILS # (AUTO) 0.29 x10^3/uL (0-0.4); EOSINOPHILS % (AUTO) 3 % (1-7); LYMPHOCYTES # (AUTO) 1.12 x10^3/uL (1-3.4); LYMPHOCYTES % (AUTO) 13 % (22-44); MD SCAN; MONOCYTES # (AUTO) 0.93 x10^3/uL (0.2-0.8); MONOCYTES % (AUTO) 11 % (2-9); NEUTROPHILS # (AUTO) 6.34 x10^3/uL (1.8-6.8); NEUTROPHILS % (AUTO) 72 % (42-75)
[2018-06-09] MEDS: INSULIN LISPRO 100 UNITS/ML, PEN SQ-INSULIN SCH ×4 (05:00→22:27)
[2018-06-09] MEDS: CARVEDILOL 25 MG TABLET PO SCH ×2 (05:46→17:07)
[2018-06-09] MEDS: POTASSIUM CHLORIDE 20 MEQ PACKET PO SCH ×3 (05:46→22:22)
[2018-06-09] MEDS: METOCLOPRAMIDE 5 MG/ML, 2ML IVPush SCH ×2 (09:38→20:30)
[2018-06-09] MEDS: FUROSEMIDE 20 MG/2 ML IV SCH (09:38)
[2018-06-09] MEDS: PANTOPRAZOLE 40 MG IV IVPush SCH (09:38)
[2018-06-09] MEDS: ENOXAPARIN 40 MG/0.4 ML SQ SCH (09:38)
[2018-06-09] MEDS: FLUCONAZOLE 200 MG/100 ML 100 ML IV SCH (12:36)
[2018-06-09] MEDS: hydrALAzine 20 MG/ML, 1ML IVPush PRN (17:46)
[2018-06-09] MEDS: SENNOSIDES 8.8 MG/5 ML ORAL SOL NG PRN (22:22)
[2018-06-09] MEDS: INSULIN GLARGINE 100 UNITS/ML, PEN SQ-INSULIN SCH (22:23)
[2018-06-09] MEDS: ERTAPENEM 1 GM in SODIUM CHLORIDE 0.9% 50 ML IV SCH (23:28)
[2018-06-10] MEDS: FENTANYL PF 100 MCG/2ML IVPush PRN ×4 (02:00→15:46)
[2018-06-10] MEDS: ALBUTEROL/IPRATROPIUM 2.5MG/0.5MG, 3 ML INLINE SCH ×6 (02:09→22:30)
[2018-06-10] MEDS: LINEZOLID PMX 600MG/300ML 300 ML IV SCH ×2 (03:05→15:45)
[2018-06-10 04:34] LABS: MEAN CORPUSCULAR HEMOGLOBIN 30.8 pg (27.5-34.5); MEAN CORPUSCULAR HGB CONC 33.2 g/dL (33.2-36.2); MEAN CORPUSCULAR VOLUME 92.9 fL (81-97); MEAN PLATELET VOLUME 7.4 fL (7.4-10.4); PLATELET COUNT 327 x10^3/uL (130-400); RED BLOOD COUNT 2.31 x10^6/uL (4.38-5.82); RED CELL DISTRIBUTION WIDTH 15.1 % (9.4-14.8)
[2018-06-10 04:39] LABS: ANION GAP 5 mmol/L (5-15); CALCIUM 7.7 mg/dL (8.5-10.1); CHLORIDE 109 mmol/L (98-107)
[2018-06-10 04:41] LABS: CREATININE 1.14 mg/dL (0.7-1.3)
[2018-06-10 04:51] LABS: BASOPHILS % (AUTO) 3 % (0-1); EOSINOPHILS # (AUTO) 0.21 x10^3/uL (0-0.4); EOSINOPHILS % (AUTO) 3 % (1-7); LYMPHOCYTES % (AUTO) 13 % (22-44); MD SCAN; MONOCYTES # (AUTO) 0.83 x10^3/uL (0.2-0.8); MONOCYTES % (AUTO) 11 % (2-9); NEUTROPHILS # (AUTO) 5.32 x10^3/uL (1.8-6.8); NEUTROPHILS % (AUTO) 70 % (42-75)
[2018-06-10] MEDS: INSULIN LISPRO 100 UNITS/ML, PEN SQ-INSULIN SCH ×4 (05:00→21:50)
[2018-06-10] MEDS: POTASSIUM CHLORIDE 20 MEQ PACKET PO SCH ×3 (05:26→21:50)
[2018-06-10] MEDS: CARVEDILOL 25 MG TABLET PO SCH ×2 (05:27→16:36)
[2018-06-10] MEDS: ONDANSETRON 2MG/ML, 2ML IVPush PRN (06:31)
[2018-06-10] MEDS ORDERED: MIDAZOLAM 1 MG/ML, 5ML IVPush ONE (09:00)
[2018-06-10] MEDS: FUROSEMIDE 20 MG/2 ML IV SCH ×2 (10:05→16:36)
[2018-06-10] MEDS: PANTOPRAZOLE 40 MG IV IVPush SCH (10:05)
[2018-06-10] MEDS: ENOXAPARIN 40 MG/0.4 ML SQ SCH (10:06)
[2018-06-10] MEDS: METOCLOPRAMIDE 5 MG/ML, 2ML IVPush SCH ×2 (10:06→20:39)
[2018-06-10] MEDS: FLUCONAZOLE 200 MG/100 ML 100 ML IV SCH (12:38)
[2018-06-10] MEDS ORDERED: CATHFLO-ALTEPLASE 2 MG/2 ML CATHFLUSH ONE (20:30)
[2018-06-10] MEDS: SCOPOLAMINE PATCH, 1.5MG PATCH.TD72 TD SCH (20:36)
[2018-06-10] MEDS: INSULIN GLARGINE 100 UNITS/ML, PEN SQ-INSULIN SCH (21:50)
[2018-06-11] MEDS: ERTAPENEM 1 GM in SODIUM CHLORIDE 0.9% 50 ML IV SCH (00:17)
[2018-06-11] MEDS: LINEZOLID PMX 600MG/300ML 300 ML IV SCH ×2 (02:09→16:30)
[2018-06-11] MEDS: ALBUTEROL/IPRATROPIUM 2.5MG/0.5MG, 3 ML INLINE SCH ×6 (03:00→22:26)
[2018-06-11 04:53] LABS: MEAN CORPUSCULAR HEMOGLOBIN 31.3 pg (27.5-34.5); MEAN CORPUSCULAR HGB CONC 33.7 g/dL (33.2-36.2); MEAN CORPUSCULAR VOLUME 92.7 fL (81-97); MEAN PLATELET VOLUME 7.4 fL (7.4-10.4); PLATELET COUNT 294 x10^3/uL (130-400); RED BLOOD COUNT 2.36 x10^6/uL (4.38-5.82); RED CELL DISTRIBUTION WIDTH 15.6 % (9.4-14.8)
[2018-06-11 05:00] LABS: CHLORIDE 108 mmol/L (98-107)
[2018-06-11] MEDS: INSULIN LISPRO 100 UNITS/ML, PEN SQ-INSULIN SCH ×4 (05:00→22:16)
[2018-06-11 05:04] LABS: ANION GAP 8 mmol/L (5-15); CREATININE 1.17 mg/dL (0.7-1.3); TRIGLYCERIDES 156 mg/dL (50-200)
[2018-06-11] MEDS: POTASSIUM CHLORIDE 20 MEQ PACKET PO SCH ×3 (05:16→22:08)
[2018-06-11] MEDS: CARVEDILOL 25 MG TABLET PO SCH ×2 (05:18→16:30)
[2018-06-11 05:43] LABS: BASOPHILS # (AUTO) 0.21 x10^3/uL (0-0.1); BASOPHILS % (AUTO) 3 % (0-1); EOSINOPHILS # (AUTO) 0.16 x10^3/uL (0-0.4); EOSINOPHILS % (AUTO) 2 % (1-7); LYMPHOCYTES # (AUTO) 0.97 x10^3/uL (1-3.4); LYMPHOCYTES % (AUTO) 13 % (22-44); MD SCAN; MONOCYTES # (AUTO) 0.85 x10^3/uL (0.2-0.8); MONOCYTES % (AUTO) 11 % (2-9); NEUTROPHILS # (AUTO) 5.42 x10^3/uL (1.8-6.8); NEUTROPHILS % (AUTO) 71 % (42-75)
[2018-06-11] MEDS ORDERED: FUROSEMIDE 20 MG/2 ML IV ONE (08:30)
[2018-06-11] MEDS: METOCLOPRAMIDE 5 MG/ML, 2ML IVPush SCH ×2 (09:57→20:49)
[2018-06-11] MEDS: hydrALAzine 20 MG/ML, 1ML IVPush PRN (09:57)
[2018-06-11] MEDS: FUROSEMIDE 20 MG/2 ML IV SCH ×2 (09:57→20:50)
[2018-06-11] MEDS: PANTOPRAZOLE 40 MG IV IVPush SCH (09:57)
[2018-06-11] MEDS: ENOXAPARIN 40 MG/0.4 ML SQ SCH (09:58)
[2018-06-11] MEDS: FLUCONAZOLE 200 MG/100 ML 100 ML IV SCH (14:37)
[2018-06-11] MEDS: ONDANSETRON 2MG/ML, 2ML IVPush PRN (18:46)
[2018-06-11] MEDS: DIPHENHYDRAMINE 50 MG/ML, 1ML IVPush PRN (18:46)
[2018-06-11] MEDS: SENNOSIDES 8.8 MG/5 ML ORAL SOL NG PRN (22:09)
[2018-06-11] MEDS: INSULIN GLARGINE 100 UNITS/ML, PEN SQ-INSULIN SCH (22:09)
[2018-06-12] MEDS: ERTAPENEM 1 GM in SODIUM CHLORIDE 0.9% 50 ML IV SCH (00:24)
[2018-06-12] MEDS: ALBUTEROL/IPRATROPIUM 2.5MG/0.5MG, 3 ML INLINE SCH ×3 (02:08→10:05)
[2018-06-12] MEDS: LINEZOLID PMX 600MG/300ML 300 ML IV SCH ×2 (02:18→14:24)
[2018-06-12] MEDS: hydrALAzine 20 MG/ML, 1ML IVPush PRN ×2 (04:32→17:27)
[2018-06-12 04:56] LABS: MEAN CORPUSCULAR HEMOGLOBIN 31.1 pg (27.5-34.5); MEAN CORPUSCULAR HGB CONC 33.2 g/dL (33.2-36.2); MEAN CORPUSCULAR VOLUME 93.7 fL (81-97); MEAN PLATELET VOLUME 7.3 fL (7.4-10.4); PLATELET COUNT 278 x10^3/uL (130-400); RED BLOOD COUNT 2.41 x10^6/uL (4.38-5.82); RED CELL DISTRIBUTION WIDTH 15.6 % (9.4-14.8)
[2018-06-12 05:06] LABS: ANION GAP 6 mmol/L (5-15); CALCIUM 7.9 mg/dL (8.5-10.1); CHLORIDE 105 mmol/L (98-107); CREATININE 1.26 mg/dL (0.7-1.3)
[2018-06-12 05:18] LABS: BASOPHILS # (AUTO) 0.09 x10^3/uL (0-0.1); BASOPHILS % (AUTO) 1 % (0-1); EOSINOPHILS # (AUTO) 0.22 x10^3/uL (0-0.4); EOSINOPHILS % (AUTO) 3 % (1-7); LYMPHOCYTES # (AUTO) 0.89 x10^3/uL (1-3.4); LYMPHOCYTES % (AUTO) 10 % (22-44); MD NO; MONOCYTES # (AUTO) 0.87 x10^3/uL (0.2-0.8); MONOCYTES % (AUTO) 10 % (2-9); NEUTROPHILS # (AUTO) 6.68 x10^3/uL (1.8-6.8); NEUTROPHILS % (AUTO) 76 % (42-75)
[2018-06-12] MEDS: CARVEDILOL 25 MG TABLET PO SCH ×2 (05:24→17:26)
[2018-06-12] MEDS: POTASSIUM CHLORIDE 20 MEQ PACKET PO SCH ×3 (05:24→21:35)
[2018-06-12] MEDS: INSULIN LISPRO 100 UNITS/ML, PEN SQ-INSULIN SCH ×4 (05:24→21:34)
[2018-06-12] MEDS ORDERED: FUROSEMIDE 20 MG/2 ML IV STA (07:43)
[2018-06-12] MEDS: FUROSEMIDE 20 MG/2 ML IV SCH ×2 (08:00→17:26)
[2018-06-12] MEDS: ENOXAPARIN 40 MG/0.4 ML SQ SCH (08:11)
[2018-06-12] MEDS: PANTOPRAZOLE 40 MG IV IVPush SCH (08:11)
[2018-06-12] MEDS: METOCLOPRAMIDE 5 MG/ML, 2ML IVPush SCH ×2 (08:12→21:35)
[2018-06-12] MEDS: LACTULOSE 20 GM/30 ML UDC NG PRN (08:12)
[2018-06-12] MEDS: FENTANYL PF 100 MCG/2ML IVPush PRN (10:19)
[2018-06-12] MEDS: FLUCONAZOLE 200 MG/100 ML 100 ML IV SCH (13:32)
[2018-06-12] MEDS: INSULIN GLARGINE 100 UNITS/ML, PEN SQ-INSULIN SCH (21:35)
[2018-06-13] MEDS: ERTAPENEM 1 GM in SODIUM CHLORIDE 0.9% 50 ML IV SCH (00:04)
[2018-06-13] MEDS: LINEZOLID PMX 600MG/300ML 300 ML IV SCH ×2 (01:20→15:08)
[2018-06-13] MEDS: ONDANSETRON 2MG/ML, 2ML IVPush PRN ×3 (03:16→15:09)
[2018-06-13 04:00] VITALS: BP 165/70
[2018-06-13] MEDS: INSULIN LISPRO 100 UNITS/ML, PEN SQ-INSULIN SCH ×4 (04:44→21:21)
[2018-06-13] MEDS: POTASSIUM CHLORIDE 20 MEQ PACKET PO SCH ×3 (04:44→21:21)
[2018-06-13] MEDS: CARVEDILOL 25 MG TABLET PO SCH ×2 (04:45→18:24)
[2018-06-13 05:20] LABS: ANION GAP 8 mmol/L (5-15); CALCIUM 8.3 mg/dL (8.5-10.1); CHLORIDE 104 mmol/L (98-107); CREATININE 1.05 mg/dL (0.7-1.3)
[2018-06-13 05:25] LABS: BASOPHILS # (AUTO) 0.03 x10^3/uL (0-0.1); BASOPHILS % (AUTO) 0 % (0-1); EOSINOPHILS % (AUTO) 1 % (1-7); LYMPHOCYTES # (AUTO) 0.71 x10^3/uL (1-3.4); LYMPHOCYTES % (AUTO) 8 % (22-44); MD NO; MEAN CORPUSCULAR HEMOGLOBIN 31.5 pg (27.5-34.5); MEAN CORPUSCULAR HGB CONC 33.8 g/dL (33.2-36.2); MEAN CORPUSCULAR VOLUME 93.2 fL (81-97); MEAN PLATELET VOLUME 7.2 fL (7.4-10.4); MONOCYTES # (AUTO) 0.85 x10^3/uL (0.2-0.8); MONOCYTES % (AUTO) 10 % (2-9); NEUTROPHILS % (AUTO) 81 % (42-75); PLATELET COUNT 317 x10^3/uL (130-400); RED BLOOD COUNT 2.71 x10^6/uL (4.38-5.82); RED CELL DISTRIBUTION WIDTH 15.7 % (9.4-14.8)
[2018-06-13] MEDS: FUROSEMIDE 20 MG/2 ML IV SCH (08:08)
[2018-06-13] MEDS: ENOXAPARIN 40 MG/0.4 ML SQ SCH (08:08)
[2018-06-13] MEDS: PANTOPRAZOLE 40 MG IV IVPush SCH (08:08)
[2018-06-13] MEDS: METOCLOPRAMIDE 5 MG/ML, 2ML IVPush SCH ×2 (08:09→21:21)
[2018-06-13 10:09] LABS: O2 FLOW 4 L/min
[2018-06-13] MEDS: BISACODYL 10 MG SUPP PR PRN (10:52)
[2018-06-13] MEDS: FLUCONAZOLE 200 MG/100 ML 100 ML IV SCH (12:53)
[2018-06-13] MEDS: hydrALAzine 20 MG/ML, 1ML IVPush PRN (13:45)
[2018-06-13] MEDS ORDERED: LIDOCAINE JELLY 2%, 30GM ONE (14:10)
[2018-06-13 14:22] VITALS: BP 179/80
[2018-06-13] MEDS: LACTULOSE 20 GM/30 ML UDC NG PRN (15:08)
[2018-06-13] MEDS: LACTOBACILLUS CHEW TABLET JT SCH ×2 (15:09→21:21)
[2018-06-13] MEDS ORDERED: VISIPAQUE 270 MG/ML, 50ML BOTTLE ONE (15:35)
[2018-06-13] MEDS: SCOPOLAMINE PATCH, 1.5MG PATCH.TD72 TD SCH (18:24)
[2018-06-13] MEDS: INSULIN GLARGINE 100 UNITS/ML, PEN SQ-INSULIN SCH (21:22)
[2018-06-14] MEDS: ERTAPENEM 1 GM in SODIUM CHLORIDE 0.9% 50 ML IV SCH (00:37)
[2018-06-14] MEDS: LINEZOLID PMX 600MG/300ML 300 ML IV SCH ×2 (01:13→14:50)
[2018-06-14 04:00] VITALS: BP 142/68
[2018-06-14] MEDS: CARVEDILOL 25 MG TABLET PO SCH ×2 (04:46→17:28)
[2018-06-14] MEDS: POTASSIUM CHLORIDE 20 MEQ PACKET PO SCH ×3 (04:46→22:30)
[2018-06-14] MEDS: INSULIN LISPRO 100 UNITS/ML, PEN SQ-INSULIN SCH ×4 (04:47→23:00)
[2018-06-14 07:45] LABS: BASOPHILS # (AUTO) 0.02 x10^3/uL (0-0.1); BASOPHILS % (AUTO) 0 % (0-1); EOSINOPHILS # (AUTO) 0.21 x10^3/uL (0-0.4); EOSINOPHILS % (AUTO) 2 % (1-7); LYMPHOCYTES # (AUTO) 0.82 x10^3/uL (1-3.4); LYMPHOCYTES % (AUTO) 9 % (22-44); MD NO; MEAN CORPUSCULAR HEMOGLOBIN 31.5 pg (27.5-34.5); MEAN CORPUSCULAR HGB CONC 33.7 g/dL (33.2-36.2); MEAN CORPUSCULAR VOLUME 93.4 fL (81-97); MEAN PLATELET VOLUME 7.1 fL (7.4-10.4); MONOCYTES # (AUTO) 0.78 x10^3/uL (0.2-0.8); MONOCYTES % (AUTO) 9 % (2-9); NEUTROPHILS # (AUTO) 7.36 x10^3/uL (1.8-6.8); NEUTROPHILS % (AUTO) 80 % (42-75); PLATELET COUNT 321 x10^3/uL (130-400); RED CELL DISTRIBUTION WIDTH 16.7 % (9.4-14.8)
[2018-06-14 07:55] LABS: ANION GAP 4 mmol/L (5-15); CALCIUM 8.6 mg/dL (8.5-10.1); CHLORIDE 107 mmol/L (98-107); CREATININE 1.18 mg/dL (0.7-1.3)
[2018-06-14] MEDS: PANTOPRAZOLE 40 MG IV IVPush SCH (08:43)
[2018-06-14] MEDS: FUROSEMIDE 20 MG/2 ML IV SCH (08:43)
[2018-06-14] MEDS: ENOXAPARIN 40 MG/0.4 ML SQ SCH (08:43)
[2018-06-14] MEDS: METOCLOPRAMIDE 5 MG/ML, 2ML IVPush SCH ×2 (08:43→20:46)
[2018-06-14] MEDS: LACTOBACILLUS CHEW TABLET JT SCH ×3 (08:44→20:46)
[2018-06-14] MEDS: FLUCONAZOLE 200 MG/100 ML 100 ML IV SCH (12:49)
[2018-06-14] MEDS: DIPHENHYDRAMINE 50 MG/ML, 1ML IVPush PRN (14:05)
[2018-06-14] MEDS: hydrALAzine 20 MG/ML, 1ML IVPush PRN (14:52)
[2018-06-14] MEDS: INSULIN GLARGINE 100 UNITS/ML, PEN SQ-INSULIN SCH (20:49)
[2018-06-15] MEDS: LINEZOLID PMX 600MG/300ML 300 ML IV SCH ×2 (02:46→14:15)
[2018-06-15] MEDS: hydrALAzine 20 MG/ML, 1ML IVPush PRN ×2 (02:53→16:02)
[2018-06-15 04:34] LABS: ANION GAP 4 mmol/L (5-15); CALCIUM 8.5 mg/dL (8.5-10.1); CHLORIDE 104 mmol/L (98-107)
[2018-06-15 04:35] LABS: CREATININE 1.03 mg/dL (0.7-1.3)
[2018-06-15 04:45] LABS: BASOPHILS # (AUTO) 0.06 x10^3/uL (0-0.1); BASOPHILS % (AUTO) 1 % (0-1); EOSINOPHILS # (AUTO) 0.33 x10^3/uL (0-0.4); EOSINOPHILS % (AUTO) 4 % (1-7); LYMPHOCYTES # (AUTO) 1.33 x10^3/uL (1-3.4); LYMPHOCYTES % (AUTO) 15 % (22-44); MD NO; MEAN CORPUSCULAR HEMOGLOBIN 32.1 pg (27.5-34.5); MEAN CORPUSCULAR HGB CONC 34.4 g/dL (33.2-36.2); MEAN CORPUSCULAR VOLUME 93.4 fL (81-97); MEAN PLATELET VOLUME 7.3 fL (7.4-10.4); MONOCYTES # (AUTO) 0.89 x10^3/uL (0.2-0.8); MONOCYTES % (AUTO) 10 % (2-9); NEUTROPHILS % (AUTO) 70 % (42-75); PLATELET COUNT 301 x10^3/uL (130-400); RED BLOOD COUNT 2.79 x10^6/uL (4.38-5.82); RED CELL DISTRIBUTION WIDTH 17.1 % (9.4-14.8)
[2018-06-15] MEDS: INSULIN LISPRO 100 UNITS/ML, PEN SQ-INSULIN SCH ×4 (05:00→23:00)
[2018-06-15] MEDS: POTASSIUM CHLORIDE 20 MEQ PACKET PO SCH ×3 (05:51→21:18)
[2018-06-15] MEDS: CARVEDILOL 25 MG TABLET PO SCH ×2 (05:51→18:03)
[2018-06-15] MEDS: METOCLOPRAMIDE 5 MG/ML, 2ML IVPush SCH ×2 (09:00→21:08)
[2018-06-15] MEDS: ENOXAPARIN 40 MG/0.4 ML SQ SCH (09:00)
[2018-06-15] MEDS: PANTOPRAZOLE 40 MG IV IVPush SCH (09:00)
[2018-06-15] MEDS: LACTOBACILLUS CHEW TABLET JT SCH ×3 (09:00→21:08)
[2018-06-15] MEDS: FUROSEMIDE 20 MG/2 ML IV SCH (09:00)
[2018-06-15] MEDS: FLUCONAZOLE 200 MG/100 ML 100 ML IV SCH (13:07)
[2018-06-15] MEDS: INSULIN GLARGINE 100 UNITS/ML, PEN SQ-INSULIN SCH (21:08)
[2018-06-15] MEDS: FENTANYL PF 100 MCG/2ML IVPush PRN (22:14)
[2018-06-15] MEDS: DIPHENHYDRAMINE 50 MG/ML, 1ML IVPush PRN (22:26)
[2018-06-16] MEDS: hydrALAzine 20 MG/ML, 1ML IVPush PRN ×2 (02:18→10:17)
[2018-06-16] MEDS: INSULIN LISPRO 100 UNITS/ML, PEN SQ-INSULIN SCH ×4 (04:55→23:00)
[2018-06-16 05:09] LABS: ANION GAP 7 mmol/L (5-15); CALCIUM 8.5 mg/dL (8.5-10.1); CHLORIDE 102 mmol/L (98-107); CREATININE 0.99 mg/dL (0.7-1.3)
[2018-06-16 05:21] LABS: BASOPHILS # (AUTO) 0.03 x10^3/uL (0-0.1); BASOPHILS % (AUTO) 0 % (0-1); EOSINOPHILS # (AUTO) 0.19 x10^3/uL (0-0.4); EOSINOPHILS % (AUTO) 2 % (1-7); LYMPHOCYTES # (AUTO) 1.31 x10^3/uL (1-3.4); LYMPHOCYTES % (AUTO) 12 % (22-44); MD NO; MEAN CORPUSCULAR HEMOGLOBIN 31.5 pg (27.5-34.5); MEAN CORPUSCULAR HGB CONC 33.7 g/dL (33.2-36.2); MEAN CORPUSCULAR VOLUME 93.7 fL (81-97); MONOCYTES # (AUTO) 1.03 x10^3/uL (0.2-0.8); MONOCYTES % (AUTO) 10 % (2-9); NEUTROPHILS # (AUTO) 8.15 x10^3/uL (1.8-6.8); NEUTROPHILS % (AUTO) 76 % (42-75); PLATELET COUNT 309 x10^3/uL (130-400); RED BLOOD COUNT 2.85 x10^6/uL (4.38-5.82); RED CELL DISTRIBUTION WIDTH 17.8 % (9.4-14.8)
[2018-06-16] MEDS: POTASSIUM CHLORIDE 20 MEQ PACKET PO SCH (05:37)
[2018-06-16] MEDS: CARVEDILOL 25 MG TABLET PO SCH ×2 (05:37→18:09)
[2018-06-16] MEDS: FUROSEMIDE 20 MG/2 ML IV SCH (09:25)
[2018-06-16] MEDS: PANTOPRAZOLE 40 MG IV IVPush SCH (09:25)
[2018-06-16] MEDS: METOCLOPRAMIDE 5 MG/ML, 2ML IVPush SCH ×2 (09:25→20:44)
[2018-06-16] MEDS: ENOXAPARIN 40 MG/0.4 ML SQ SCH (09:26)
[2018-06-16] MEDS: LACTOBACILLUS CHEW TABLET JT SCH ×3 (09:26→20:44)
[2018-06-16] MEDS: BISACODYL 10 MG SUPP PR PRN (13:04)
[2018-06-16] MEDS: SCOPOLAMINE PATCH, 1.5MG PATCH.TD72 TD SCH (18:10)
[2018-06-16] MEDS: INSULIN GLARGINE 100 UNITS/ML, PEN SQ-INSULIN SCH (20:44)
[2018-06-16] MEDS: DIPHENHYDRAMINE 50 MG/ML, 1ML IVPush PRN (21:16)
[2018-06-17] MEDS: hydrALAzine 20 MG/ML, 1ML IVPush PRN ×3 (00:13→22:02)
[2018-06-17] MEDS: INSULIN LISPRO 100 UNITS/ML, PEN SQ-INSULIN SCH ×4 (05:00→23:17)
[2018-06-17 05:01] LABS: BASOPHILS # (AUTO) 0.12 x10^3/uL (0-0.1); BASOPHILS % (AUTO) 1 % (0-1); EOSINOPHILS # (AUTO) 0.12 x10^3/uL (0-0.4); EOSINOPHILS % (AUTO) 1 % (1-7); LYMPHOCYTES % (AUTO) 9 % (22-44); MD NO; MEAN CORPUSCULAR HEMOGLOBIN 31.5 pg (27.5-34.5); MEAN CORPUSCULAR HGB CONC 33.3 g/dL (33.2-36.2); MEAN CORPUSCULAR VOLUME 94.6 fL (81-97); MONOCYTES # (AUTO) 1.32 x10^3/uL (0.2-0.8); MONOCYTES % (AUTO) 12 % (2-9); NEUTROPHILS # (AUTO) 8.54 x10^3/uL (1.8-6.8); NEUTROPHILS % (AUTO) 77 % (42-75); PLATELET COUNT 289 x10^3/uL (130-400); RED CELL DISTRIBUTION WIDTH 17.8 % (9.4-14.8)
[2018-06-17 05:14] LABS: ANION GAP 5 mmol/L (5-15); CALCIUM 8.7 mg/dL (8.5-10.1); CHLORIDE 102 mmol/L (98-107)
[2018-06-17] MEDS ORDERED: POTASSIUM CHLORIDE 20 MEQ PACKET PO SCH (06:00)
[2018-06-17] MEDS: CARVEDILOL 25 MG TABLET PO SCH ×2 (06:00→17:41)
[2018-06-17] MEDS: LACTOBACILLUS CHEW TABLET JT SCH ×2 (08:18→08:19)
[2018-06-17] MEDS: METOCLOPRAMIDE 5 MG/ML, 2ML IVPush SCH ×2 (10:24→22:02)
[2018-06-17] MEDS: FUROSEMIDE 20 MG/2 ML IV SCH (10:25)
[2018-06-17] MEDS: POTASSIUM CHLORIDE 10% 40 MEQ/30 ML UDC PO SCH ×2 (10:25→22:01)
[2018-06-17] MEDS: ENOXAPARIN 40 MG/0.4 ML SQ SCH (10:25)
[2018-06-17] MEDS: PANTOPRAZOLE 40 MG IV IVPush SCH (10:28)
[2018-06-17] MEDS: HALOPERIDOL 5 MG/ML IV PRN (19:32)
[2018-06-17] MEDS: INSULIN GLARGINE 100 UNITS/ML, PEN SQ-INSULIN SCH (20:11)
[2018-06-17] MEDS: SERTRALINE 100MG TABLET PO SCH (22:01)
[2018-06-17] MEDS: DIPHENHYDRAMINE 50 MG/ML, 1ML IVPush PRN (22:02)
[2018-06-18] MEDS: FENTANYL PF 100 MCG/2ML IVPush PRN (00:12)
[2018-06-18] MEDS: HALOPERIDOL 5 MG/ML IV PRN (01:56)
[2018-06-18] MEDS: hydrALAzine 20 MG/ML, 1ML IVPush PRN (01:56)
[2018-06-18] MEDS ORDERED: PROPOFOL 100 ML IV ONE (03:02)
[2018-06-18] MEDS ORDERED: NOREPINEPHRINE 4 MG in SODIUM CHLORIDE 0.9% 246 ML IV PRN (03:47)
[2018-06-18] MEDS ORDERED: PHARMACY MAY ADJ FOR RENAL FX MC SCH (04:00)
[2018-06-18] MEDS ORDERED: LIDOCAINE-MPF 1%, 2ML ENDO PRN (04:00)
[2018-06-18] MEDS: ERTAPENEM 1 GM in SODIUM CHLORIDE 0.9% 50 ML IV SCH (04:15)
[2018-06-18 04:52] LABS: MICROSCOPIC AUTO
[2018-06-18 04:55] LABS: CULTURE INDICATED? NO
[2018-06-18] MEDS: LINEZOLID PMX 600MG/300ML 300 ML IV SCH ×2 (05:16→17:40)
[2018-06-18] MEDS: INSULIN LISPRO 100 UNITS/ML, PEN SQ-INSULIN SCH ×4 (05:16→23:29)
[2018-06-18] MEDS: CARVEDILOL 25 MG TABLET PO SCH ×2 (05:42→16:39)
[2018-06-18 08:14] LABS: MEAN CORPUSCULAR HEMOGLOBIN 31.1 pg (27.5-34.5); MEAN CORPUSCULAR HGB CONC 32.9 g/dL (33.2-36.2); MEAN CORPUSCULAR VOLUME 94.5 fL (81-97); MEAN PLATELET VOLUME 7.4 fL (7.4-10.4); PLATELET COUNT 303 x10^3/uL (130-400); RED BLOOD COUNT 2.88 x10^6/uL (4.38-5.82); RED CELL DISTRIBUTION WIDTH 18.9 % (9.4-14.8)
[2018-06-18 08:23] LABS: ANION GAP 5 mmol/L (5-15); CALCIUM 8.9 mg/dL (8.5-10.1); CHLORIDE 107 mmol/L (98-107); CREATININE 1.44 mg/dL (0.7-1.3)
[2018-06-18] MEDS ORDERED: MIDAZOLAM 1 MG/ML, 2ML ONE (08:48)
[2018-06-18] MEDS ORDERED: VECURONIUM 10 MG ONE (08:48)
[2018-06-18 08:50] LABS: BASOPHILS # (AUTO) 0.03 x10^3/uL (0-0.1); BASOPHILS % (AUTO) 0 % (0-1); EOSINOPHILS % (AUTO) 0 % (1-7); LYMPHOCYTES # (AUTO) 0.49 x10^3/uL (1-3.4); LYMPHOCYTES % (AUTO) 3 % (22-44); MD SCAN; MONOCYTES # (AUTO) 1.66 x10^3/uL (0.2-0.8); MONOCYTES % (AUTO) 10 % (2-9); NEUTROPHILS # (AUTO) 15.28 x10^3/uL (1.8-6.8); NEUTROPHILS % (AUTO) 88 % (42-75)
[2018-06-18] MEDS ORDERED: SERTRALINE 100MG TABLET PO SCH (09:00)
[2018-06-18] MEDS ORDERED: VECURONIUM 10 MG IVPush ONE (10:00)
[2018-06-18] MEDS ORDERED: FENTANYL PF 100 MCG/2ML IV ONE (10:00)
[2018-06-18] MEDS ORDERED: MIDAZOLAM 1 MG/ML, 2ML IVPush ONE (10:00)
[2018-06-18] MEDS ORDERED: ROCURONIUM 10MG/ML,5ML ONE (10:06)
[2018-06-18] MEDS ORDERED: ETOMIDATE 40 MG/20 ML ONE (10:06)
[2018-06-18] MEDS: METOCLOPRAMIDE 5 MG/ML, 2ML IVPush SCH ×2 (12:03→21:07)
[2018-06-18] MEDS: PANTOPRAZOLE 40 MG IV IVPush SCH (12:03)
[2018-06-18] MEDS: POTASSIUM CHLORIDE 10% 40 MEQ/30 ML UDC PO SCH ×2 (12:03→21:00)
[2018-06-18] MEDS: ENOXAPARIN 40 MG/0.4 ML SQ SCH (12:04)
[2018-06-18] MEDS: SERTRALINE 100MG TABLET PO SCH (12:08)
[2018-06-18] MEDS: D5%-0.45% NACL 1,000 ML IV SCH (12:09)
[2018-06-18] MEDS ORDERED: LINEZOLID PMX 600MG/300ML 300 ML IV SCH (13:00)
[2018-06-18] MEDS ORDERED: ALBUMIN HUMAN 25% 100 ML IV ONE (16:30)
[2018-06-18] MEDS ORDERED: NOREPINEPHRINE 4 MG in SODIUM CHLORIDE 0.9% 246 ML IV SCH (16:31)
[2018-06-18] MEDS: PROPOFOL 100 ML IV PRN (18:31)
[2018-06-18] MEDS ORDERED: LIDOCAINE 2% 100MG/5ML SYRINGE ONE (19:50)
[2018-06-18] MEDS ORDERED: LIDOCAINE-MPF 2%, 2ML ONE (19:50)
[2018-06-18] MEDS: INSULIN GLARGINE 100 UNITS/ML, PEN SQ-INSULIN SCH (21:00)
[2018-06-19] MEDS: ERTAPENEM 1 GM in SODIUM CHLORIDE 0.9% 50 ML IV SCH (04:15)
[2018-06-19] MEDS: PROPOFOL 100 ML IV PRN ×2 (04:16→16:47)
[2018-06-19 04:28] LABS: BASOPHILS # (AUTO) 0.05 x10^3/uL (0-0.1); BASOPHILS % (AUTO) 1 % (0-1); EOSINOPHILS # (AUTO) 0.31 x10^3/uL (0-0.4); EOSINOPHILS % (AUTO) 3 % (1-7); LYMPHOCYTES # (AUTO) 1.24 x10^3/uL (1-3.4); LYMPHOCYTES % (AUTO) 12 % (22-44); MD NO; MEAN CORPUSCULAR HEMOGLOBIN 31.5 pg (27.5-34.5); MEAN CORPUSCULAR HGB CONC 33.3 g/dL (33.2-36.2); MEAN CORPUSCULAR VOLUME 94.5 fL (81-97); MEAN PLATELET VOLUME 7.4 fL (7.4-10.4); MONOCYTES # (AUTO) 0.91 x10^3/uL (0.2-0.8); MONOCYTES % (AUTO) 9 % (2-9); NEUTROPHILS # (AUTO) 7.47 x10^3/uL (1.8-6.8); NEUTROPHILS % (AUTO) 75 % (42-75); PLATELET COUNT 229 x10^3/uL (130-400); RED BLOOD COUNT 2.31 x10^6/uL (4.38-5.82); RED CELL DISTRIBUTION WIDTH 19.8 % (9.4-14.8)
[2018-06-19 04:40] LABS: ANION GAP 7 mmol/L (5-15); CALCIUM 8.6 mg/dL (8.5-10.1); CHLORIDE 106 mmol/L (98-107)
[2018-06-19 04:42] LABS: CREATININE 1.62 mg/dL (0.7-1.3)
[2018-06-19] MEDS: INSULIN LISPRO 100 UNITS/ML, PEN SQ-INSULIN SCH ×4 (04:48→23:08)
[2018-06-19] MEDS: LINEZOLID PMX 600MG/300ML 300 ML IV SCH ×2 (04:51→16:41)
[2018-06-19] MEDS: CARVEDILOL 25 MG TABLET PO SCH ×2 (06:25→16:42)
[2018-06-19] MEDS: SERTRALINE 100MG TABLET PO SCH (09:00)
[2018-06-19] MEDS: ENOXAPARIN 40 MG/0.4 ML SQ SCH (09:00)
[2018-06-19] MEDS: PANTOPRAZOLE 40 MG IV IVPush SCH (09:07)
[2018-06-19] MEDS: METOCLOPRAMIDE 5 MG/ML, 2ML IVPush SCH ×2 (09:07→21:07)
[2018-06-19 10:16] LABS: MEAN CORPUSCULAR HEMOGLOBIN 30.8 pg (27.5-34.5); MEAN CORPUSCULAR HGB CONC 32.8 g/dL (33.2-36.2); MEAN CORPUSCULAR VOLUME 94.2 fL (81-97); MEAN PLATELET VOLUME 7.5 fL (7.4-10.4); PLATELET COUNT 220 x10^3/uL (130-400); RED BLOOD COUNT 2.26 x10^6/uL (4.38-5.82); RED CELL DISTRIBUTION WIDTH 19.2 % (9.4-14.8)
[2018-06-19 10:39] LABS: BASOPHILS # (AUTO) 0.03 x10^3/uL (0-0.1); BASOPHILS % (AUTO) 0 % (0-1); EOSINOPHILS # (AUTO) 0.15 x10^3/uL (0-0.4); EOSINOPHILS % (AUTO) 2 % (1-7); LYMPHOCYTES # (AUTO) 1.21 x10^3/uL (1-3.4); LYMPHOCYTES % (AUTO) 13 % (22-44); MD SCAN; MONOCYTES % (AUTO) 10 % (2-9); NEUTROPHILS # (AUTO) 6.77 x10^3/uL (1.8-6.8); NEUTROPHILS % (AUTO) 75 % (42-75)
[2018-06-19] MEDS ORDERED: PROPOFOL 10 MG/ML, 20ML ONE (11:20)
[2018-06-19] MEDS ORDERED: ROCURONIUM 10 MG/ML,10ML ONE (11:20)
[2018-06-19] MEDS ORDERED: FENTANYL PF 250 MCG/5ML ONE (11:57)
[2018-06-19] MEDS: D5%-0.45% NACL 1,000 ML IV SCH (14:00)
[2018-06-19] MEDS: SCOPOLAMINE PATCH, 1.5MG PATCH.TD72 TD SCH (16:41)
[2018-06-19] MEDS: INSULIN GLARGINE 100 UNITS/ML, PEN SQ-INSULIN SCH (21:12)
[2018-06-20] MEDS: PROPOFOL 100 ML IV PRN ×3 (00:40→23:39)
[2018-06-20] MEDS: ERTAPENEM 1 GM in SODIUM CHLORIDE 0.9% 50 ML IV SCH (03:57)
[2018-06-20 04:59] LABS: ANION GAP 5 mmol/L (5-15); CALCIUM 8.1 mg/dL (8.5-10.1); CHLORIDE 106 mmol/L (98-107); CREATININE 1.45 mg/dL (0.7-1.3); MEAN CORPUSCULAR HEMOGLOBIN 31.7 pg (27.5-34.5); MEAN CORPUSCULAR HGB CONC 33.9 g/dL (33.2-36.2); MEAN CORPUSCULAR VOLUME 93.5 fL (81-97); MEAN PLATELET VOLUME 7.4 fL (7.4-10.4); PLATELET COUNT 219 x10^3/uL (130-400); RED BLOOD COUNT 2.22 x10^6/uL (4.38-5.82); RED CELL DISTRIBUTION WIDTH 19.4 % (9.4-14.8)
[2018-06-20] MEDS: INSULIN LISPRO 100 UNITS/ML, PEN SQ-INSULIN SCH ×4 (05:00→23:32)
[2018-06-20 05:04] LABS: BASOPHILS # (AUTO) 0.05 x10^3/uL (0-0.1); BASOPHILS % (AUTO) 1 % (0-1); EOSINOPHILS # (AUTO) 0.33 x10^3/uL (0-0.4); EOSINOPHILS % (AUTO) 4 % (1-7); LYMPHOCYTES # (AUTO) 1.08 x10^3/uL (1-3.4); LYMPHOCYTES % (AUTO) 14 % (22-44); MD SCAN; MONOCYTES # (AUTO) 0.73 x10^3/uL (0.2-0.8); MONOCYTES % (AUTO) 10 % (2-9); NEUTROPHILS # (AUTO) 5.39 x10^3/uL (1.8-6.8); NEUTROPHILS % (AUTO) 71 % (42-75)
[2018-06-20] MEDS: LINEZOLID PMX 600MG/300ML 300 ML IV SCH ×2 (05:39→16:53)
[2018-06-20] MEDS: CARVEDILOL 25 MG TABLET PO SCH ×2 (06:30→17:39)
[2018-06-20] MEDS ORDERED: MEROPENEM 1 GM in SODIUM CHLORIDE 0.9% 100 ML IV SCH (08:30)
[2018-06-20] MEDS: PANTOPRAZOLE 40 MG IV IVPush SCH (09:48)
[2018-06-20] MEDS: SERTRALINE 100MG TABLET PO SCH (09:48)
[2018-06-20] MEDS: METOCLOPRAMIDE 5 MG/ML, 2ML IVPush SCH ×2 (09:48→21:26)
[2018-06-20] MEDS: ENOXAPARIN 40 MG/0.4 ML SQ SCH (09:49)
[2018-06-20] MEDS: D5%-0.45% NACL 1,000 ML IV SCH (15:35)
[2018-06-20] MEDS: hydrALAzine 20 MG/ML, 1ML IVPush PRN (16:02)
[2018-06-20] MEDS: FENTANYL PF 100 MCG/2ML IVPush PRN (16:52)
[2018-06-20] MEDS: INSULIN GLARGINE 100 UNITS/ML, PEN SQ-INSULIN SCH (21:29)
[2018-06-20] MEDS: MEROPENEM 1 GM in SODIUM CHLORIDE 0.9% 100 ML IV SCH (23:38)
[2018-06-21 04:40] LABS: MEAN CORPUSCULAR HEMOGLOBIN 30.5 pg (27.5-34.5); MEAN CORPUSCULAR HGB CONC 32.6 g/dL (33.2-36.2); MEAN CORPUSCULAR VOLUME 93.6 fL (81-97); MEAN PLATELET VOLUME 7.7 fL (7.4-10.4); PLATELET COUNT 236 x10^3/uL (130-400); RED CELL DISTRIBUTION WIDTH 18.6 % (9.4-14.8)
[2018-06-21 04:51] LABS: ANION GAP 5 mmol/L (5-15); CALCIUM 7.9 mg/dL (8.5-10.1); CHLORIDE 104 mmol/L (98-107); CREATININE 1.06 mg/dL (0.7-1.3); TRIGLYCERIDES 141 mg/dL (50-200)
[2018-06-21] MEDS: INSULIN LISPRO 100 UNITS/ML, PEN SQ-INSULIN SCH ×4 (05:00→23:00)
[2018-06-21] MEDS: LINEZOLID PMX 600MG/300ML 300 ML IV SCH ×2 (05:19→17:00)
[2018-06-21 05:54] LABS: BASOPHILS # (AUTO) 0.02 x10^3/uL (0-0.1); BASOPHILS % (AUTO) 0 % (0-1); EOSINOPHILS # (AUTO) 0.26 x10^3/uL (0-0.4); EOSINOPHILS % (AUTO) 4 % (1-7); LYMPHOCYTES % (AUTO) 16 % (22-44); MD SCAN; MONOCYTES % (AUTO) 10 % (2-9); NEUTROPHILS # (AUTO) 4.66 x10^3/uL (1.8-6.8); NEUTROPHILS % (AUTO) 69 % (42-75)
[2018-06-21] MEDS: CARVEDILOL 25 MG TABLET PO SCH ×2 (06:29→17:53)
[2018-06-21] MEDS: PROPOFOL 100 ML IV PRN ×2 (06:29→21:24)
[2018-06-21] MEDS: ENOXAPARIN 40 MG/0.4 ML SQ SCH (09:00)
[2018-06-21] MEDS: PANTOPRAZOLE 40 MG IV IVPush SCH (10:35)
[2018-06-21] MEDS: SERTRALINE 100MG TABLET PO SCH (10:36)
[2018-06-21] MEDS: METOCLOPRAMIDE 5 MG/ML, 2ML IVPush SCH ×2 (10:36→21:15)
[2018-06-21] MEDS: BISACODYL 10 MG SUPP PR PRN (10:37)
[2018-06-21] MEDS: MEROPENEM 1 GM in SODIUM CHLORIDE 0.9% 100 ML IV SCH ×2 (13:26→23:21)
[2018-06-21] MEDS ORDERED: VECURONIUM 10 MG ONE (15:26)
[2018-06-21] MEDS ORDERED: MIDAZOLAM 1 MG/ML, 5ML ONE ×2 (15:26→15:46)
[2018-06-21] MEDS: hydrALAzine 20 MG/ML, 1ML IVPush PRN (16:12)
[2018-06-21] MEDS: D5%-0.45% NACL 1,000 ML IV SCH (16:12)
[2018-06-21] MEDS ORDERED: VECURONIUM 10 MG IVPush ONE (16:30)
[2018-06-21] MEDS ORDERED: FENTANYL PF 250 MCG/5ML IVPush ONE (16:30)
[2018-06-21] MEDS ORDERED: MIDAZOLAM 1 MG/ML, 2ML IVPush ONE (16:30)
[2018-06-21] MEDS: FENTANYL PF 100 MCG/2ML IVPush PRN (19:52)
[2018-06-21] MEDS: INSULIN GLARGINE 100 UNITS/ML, PEN SQ-INSULIN SCH (21:23)
[2018-06-22 04:30] LABS: ANION GAP 5 mmol/L (5-15); CALCIUM 7.7 mg/dL (8.5-10.1); CHLORIDE 105 mmol/L (98-107); CREATININE 0.95 mg/dL (0.7-1.3)
[2018-06-22] MEDS: LINEZOLID PMX 600MG/300ML 300 ML IV SCH ×2 (04:35→16:34)
[2018-06-22 04:36] LABS: MEAN CORPUSCULAR HEMOGLOBIN 31.7 pg (27.5-34.5); MEAN CORPUSCULAR HGB CONC 33.8 g/dL (33.2-36.2); MEAN CORPUSCULAR VOLUME 93.7 fL (81-97); MEAN PLATELET VOLUME 7.6 fL (7.4-10.4); PLATELET COUNT 228 x10^3/uL (130-400); RED BLOOD COUNT 2.37 x10^6/uL (4.38-5.82); RED CELL DISTRIBUTION WIDTH 18.2 % (9.4-14.8)
[2018-06-22] MEDS: INSULIN LISPRO 100 UNITS/ML, PEN SQ-INSULIN SCH ×3 (04:39→16:46)
[2018-06-22 05:24] LABS: BASOPHILS # (AUTO) 0.03 x10^3/uL (0-0.1); BASOPHILS % (AUTO) 0 % (0-1); EOSINOPHILS # (AUTO) 0.27 x10^3/uL (0-0.4); EOSINOPHILS % (AUTO) 4 % (1-7); LYMPHOCYTES # (AUTO) 0.91 x10^3/uL (1-3.4); LYMPHOCYTES % (AUTO) 13 % (22-44); MD SCAN; MONOCYTES # (AUTO) 0.69 x10^3/uL (0.2-0.8); MONOCYTES % (AUTO) 10 % (2-9); NEUTROPHILS # (AUTO) 5.08 x10^3/uL (1.8-6.8); NEUTROPHILS % (AUTO) 73 % (42-75)
[2018-06-22] MEDS: CARVEDILOL 25 MG TABLET PO SCH (06:21)
[2018-06-22] MEDS: hydrALAzine 20 MG/ML, 1ML IVPush PRN (08:48)
[2018-06-22] MEDS: PANTOPRAZOLE 40 MG IV IVPush SCH (08:49)
[2018-06-22] MEDS: METOCLOPRAMIDE 5 MG/ML, 2ML IVPush SCH (08:49)
[2018-06-22] MEDS: ENOXAPARIN 40 MG/0.4 ML SQ SCH (08:49)
[2018-06-22] MEDS: SERTRALINE 100MG TABLET PO SCH (08:50)
[2018-06-22] MEDS ORDERED: CIPROFLOXACIN/PMX 400MG/200ML 200 ML IVPB SCH (10:00)
[2018-06-22] MEDS: D5%-0.45% NACL 1,000 ML IV SCH (10:34)
[2018-06-22] MEDS ORDERED: CIPR200P4 IVPB (14:18)
[2018-06-22] MEDS ORDERED: ENOX40SY4 SQ (14:19)
[2018-06-22] MEDS ORDERED: INSU100V8 SQ (14:20)
[2018-06-22] MEDS ORDERED: LINE600I9 IVPB (14:22)
[2018-06-22] MEDS ORDERED: INSU100C SQ-INSULIN (14:23)
[2018-06-22] MEDS ORDERED: METO5SOL2 IVPush (14:24)
[2018-06-22] MEDS ORDERED: SCOP1PAT11 TD (14:26)
[2018-06-22] MEDS ORDERED: SERT100T32 PO (14:26)
[2018-06-22] MEDS ORDERED: ACET-1770 PO (14:28)
[2018-06-22] MEDS ORDERED: BISA10SU2 PR (14:30)
[2018-06-22] MEDS ORDERED: ONDA4SOL2 IVPush (14:31)
[2018-06-22] MEDS ORDERED: MORP2SYR IVPush (14:33)
== END 2018-06-22 18:17 | DRG 3 ==
LOC: ORIP 09:24 → CCU 17:47 → 4NOR 05-20 14:30 → CCU 05-23 20:56 → ICU 06-06 18:29 → CCU 06-09 17:19
PROVIDERS: ADMIT Thoracic Surgery (Cardiothoracic Vascular Surgery); ATTEND Thoracic Surgery (Cardiothoracic Vascular Surgery)
PROC: 5A1955Z Respiratory Ventilation, Greater than 96 Consecutive Hours (ICD-10-PCS; 2018-05-16)
PROC: 0DB34ZZ Excision of Lower Esophagus, Percutaneous Endoscopic Approach (ICD-10-PCS; 2018-05-16)
PROC: 0DHA3UZ Insertion of Feeding Device into Jejunum, Percutaneous Approach (ICD-10-PCS; principal; 2018-05-16 12:00)
PROC: 30233N1 Transfusion of Nonautologous Red Blood Cells into Peripheral Vein, Percutaneous Approach (ICD-10-PCS; 2018-05-22)
PROC: 0DB30ZZ Excision of Lower Esophagus, Open Approach (ICD-10-PCS; 2018-05-25)
PROC: 0BNK0ZZ Release Right Lung, Open Approach (ICD-10-PCS; 2018-05-25)
PROC: 0BH17EZ Insertion of Endotracheal Airway into Trachea, Via Natural or Artificial Opening (ICD-10-PCS; 2018-05-25)
PROC: 0DJ08ZZ Inspection of Upper Intestinal Tract, Via Natural or Artificial Opening Endoscopic (ICD-10-PCS; 2018-05-25)
PROC: 5A1955Z Respiratory Ventilation, Greater than 96 Consecutive Hours (ICD-10-PCS; 2018-05-25)
PROC: 0BJ08ZZ Inspection of Tracheobronchial Tree, Via Natural or Artificial Opening Endoscopic (ICD-10-PCS; 2018-05-25)
PROC: 02HV33Z Insertion of Infusion Device into Superior Vena Cava, Percutaneous Approach (ICD-10-PCS; 2018-05-25)
PROC: 0DJ08ZZ Inspection of Upper Intestinal Tract, Via Natural or Artificial Opening Endoscopic (ICD-10-PCS; 2018-06-02)
PROC: 0D738DZ Dilation of Lower Esophagus with Intraluminal Device, Via Natural or Artificial Opening Endoscopic (ICD-10-PCS; 2018-06-03)
PROC: 0B9J8ZX Drainage of Left Lower Lung Lobe, Via Natural or Artificial Opening Endoscopic, Diagnostic (ICD-10-PCS; 2018-06-10)
PROC: 0B9F8ZX Drainage of Right Lower Lung Lobe, Via Natural or Artificial Opening Endoscopic, Diagnostic (ICD-10-PCS; 2018-06-10)
PROC: 0W983ZZ Drainage of Chest Wall, Percutaneous Approach (ICD-10-PCS; 2018-06-10)
PROC: 0T9B70Z Drainage of Bladder with Drainage Device, Via Natural or Artificial Opening (ICD-10-PCS; 2018-06-18)
PROC: 0B9J8ZX Drainage of Left Lower Lung Lobe, Via Natural or Artificial Opening Endoscopic, Diagnostic (ICD-10-PCS; 2018-06-18)
PROC: 0B9F8ZX Drainage of Right Lower Lung Lobe, Via Natural or Artificial Opening Endoscopic, Diagnostic (ICD-10-PCS; 2018-06-18)
PROC: 0B113F4 Bypass Trachea to Cutaneous with Tracheostomy Device, Percutaneous Approach (ICD-10-PCS; 2018-06-21)
PROC: 0BJ08ZZ Inspection of Tracheobronchial Tree, Via Natural or Artificial Opening Endoscopic (ICD-10-PCS; 2018-06-21)
DX: C15.5 Malignant neoplasm of lower third of esophagus (principal); J96.01 Acute respiratory failure with hypoxia; I71.00 Dissection of unspecified site of aorta; J15.1 Pneumonia due to Pseudomonas; J86.9 Pyothorax without fistula; J96.02 Acute respiratory failure with hypercapnia; E87.2 Acidosis; D68.59 Other primary thrombophilia; J44.0 Chronic obstructive pulmonary disease with (acute) lower respiratory infection; T81.32XA Disruption of internal operation (surgical) wound, not elsewhere classified, initial encounter; K91.89 Other postprocedural complications and disorders of digestive system; Z99.11 Dependence on respirator [ventilator] status; S20.211A Contusion of right front wall of thorax, initial encounter; D63.8 Anemia in other chronic diseases classified elsewhere; E83.42 Hypomagnesemia; E87.5 Hyperkalemia; I10 Essential (primary) hypertension; I35.1 Nonrheumatic aortic (valve) insufficiency; I48.0 Paroxysmal atrial fibrillation; I49.3 Ventricular premature depolarization; I71.2 Thoracic aortic aneurysm, without rupture; J38.3 Other diseases of vocal cords; K31.84 Gastroparesis; K44.9 Diaphragmatic hernia without obstruction or gangrene; Y83.8 Other surgical procedures as the cause of abnormal reaction of the patient, or of later complication, without mention of misadventure at the time of the procedure; Y73.2 Prosthetic and other implants, materials and accessory gastroenterology and urology devices associated with adverse incidents; Y83.2 Surgical operation with anastomosis, bypass or graft as the cause of abnormal reaction of the patient, or of later complication, without mention of misadventure at the time of the procedure; Z85.01 Personal history of malignant neoplasm of esophagus; Z87.891 Personal history of nicotine dependence; Z88.0 Allergy status to penicillin
CPT/HCPCS: 31622; 31624; 36415; 36600; 71045; 71250; 74018; 74241; 74340; 76000; 80048; 80053; 80202; 81001; 82330; 82803; 82947; 82962; 83735; 84100; 84132; 84134; 84145; 84295; 84478; 84484; 85014; 85025; 86850; 86900; 86923; 87015; 87040; 87070; 87075; 87077; 87081; 87102; 87106; 87116; 87176; 87181; 87186; 87205; 87206; 88305; 88307; 88309; 93005; 93306; 94002; 94003; 94150; 94640; 94667; B4087; C1729; G0378; J0690; J0744; J1100; J1170; J1335; J1650; J1885; J1940; J2020; J2185; J2250; J2270; J2405; J2704; J2710; J2997; J3010; J3370; J3475; J3480; J3490; J7620; P9047; Q9966; C1751; C1769; C1874; C1876; C9113; J0330; J0360; J1120; J1200; J1450; J1630; J1815; J2060; J2370; J2765; J2800; J2930; J7030; J7050; J7120; P9016

== ENCOUNTER 2018-09-19 09:45 | Outpatient (CLI) | payer MEDICARE ==
[~2018-09-19 09:45] MED LIST changes: +ACET-1770 PO; +BISA10SU2 PR; -BUPIVACAINE/PF-EPI 0.5% 1:200K ONE; +CIPR200P4 IVPB; +ENOX40SY4 SQ; +INSU100C SQ-INSULIN; +INSU100V8 SQ; +LINE600I9 IVPB; +METO5SOL2 IVPush; +MORP2SYR IVPush; +ONDA4SOL2 IVPush; -ROSU10TA PO; +ROSU10TA2 PO; +SCOP1PAT11 TD; +SERT100T32 PO
== END 2018-09-19 23:59 | disposition home or self-care (01) ==
LOC: PETCFH 09:45
PROVIDERS: ATTEND Specialist
DX: I71.2 Thoracic aortic aneurysm, without rupture (principal); C15.5 Malignant neoplasm of lower third of esophagus; Z90.49 Acquired absence of other specified parts of digestive tract; Z93.4 Other artificial openings of gastrointestinal tract status
CPT/HCPCS: 78815; A9552

== ENCOUNTER 2018-11-01 10:31 | Day surgery (SDC) | payer MEDICARE ==
[~2018-11-01] VITALS: Ht 165.1 cm; Wt 65.6 kg
[2018-11-01] MEDS ORDERED: LACTATED RINGERS 1,000 ML IV SCH (10:54)
[2018-11-01 10:55] VITALS: BP 172/89
[2018-11-01] MEDS ORDERED: PROPOFOL 10 MG/ML, 20ML ONE (12:44)
[2018-11-01] MEDS ORDERED: EPHEDRINE 50 MG/ML, 1ML IVPush PRN (13:30)
[2018-11-01] MEDS ORDERED: HYDROmorphone 2 MG/ML, 1ML IVPush PRN (13:30)
[2018-11-01] MEDS ORDERED: LABETALOL 5MG/ML, 20ML IV PRN (13:30)
[2018-11-01] MEDS ORDERED: MEPERIDINE/PF 25MG/0.5ML IVPush PRN (13:30)
[2018-11-01] MEDS ORDERED: MIDAZOLAM 1 MG/ML, 2ML IV PRN (13:30)
[2018-11-01] MEDS ORDERED: ALBUTEROL SULFATE 2.5 MG/3 ML NPPB PRN (13:30)
[2018-11-01] MEDS ORDERED: hydrALAzine 20 MG/ML, 1ML IV PRN (13:30)
[2018-11-01] MEDS ORDERED: HALOPERIDOL 5 MG/ML IV PRN (13:30)
[2018-11-01] MEDS ORDERED: ONDANSETRON 2MG/ML, 2ML IV PRN (13:30)
[2018-11-01] MEDS ORDERED: PROMETHAZINE 25 MG/ML, 1ML IV PRN (13:30)
[2018-11-01] MEDS ORDERED: ONDANSETRON ODT 8 MG PO PRN (13:30)
[2018-11-01] MEDS ORDERED: FENTANYL PF 100 MCG/2ML IV PRN (13:30)
[2018-11-01] MEDS ORDERED: MORPHINE SULFATE 4 MG/ML, 1ML IVPush PRN (13:30)
[2018-11-01] MEDS ORDERED: DIAZEPAM 5 MG/ML, 2ML IVPush PRN (13:30)
[2018-11-01] MEDS ORDERED: OXYcodone 5 MG/5 ML ORAL.SOL UDC PO PRN (13:30)
[2018-11-01] MEDS ORDERED: PROMETHAZINE 12.5 MG SUPP PR PRN (13:30)
== END 2018-11-01 15:50 | disposition home or self-care (01) ==
LOC: OUT 10:31
PROVIDERS: ATTEND Internal Medicine
DX: Z46.59 Encounter for fitting and adjustment of other gastrointestinal appliance and device (principal); Z85.01 Personal history of malignant neoplasm of esophagus; J44.9 Chronic obstructive pulmonary disease, unspecified; I10 Essential (primary) hypertension; E11.9 Type 2 diabetes mellitus without complications; N40.0 Benign prostatic hyperplasia without lower urinary tract symptoms; Z88.1 Allergy status to other antibiotic agents; Z88.0 Allergy status to penicillin; Z88.8 Allergy status to other drugs, medicaments and biological substances; Z79.4 Long term (current) use of insulin; Z98.0 Intestinal bypass and anastomosis status
CPT/HCPCS: 43247; 74220; 82962; J2704; J7120